=== PATIENT | male | born 1950 | race Caucasian/White ===

== ENCOUNTER 2016-11-23 13:38 | Inpatient (IN) | payer BC, OTHER ==
[~2016-11-23] VITALS: Ht 190.5 cm; Wt 49.9 kg
[2016-11-25 15:59] VITALS: BP 107/71
--- NOTE | 2016-11-25 19:15 | NUR ---
Received report from TOM Acevedo. Received patient laying in bed. Alert and verbally responsive. Able to make needs known. No c/o pain and discomfort at this time. No acute distress. No SOB. Patient on room air. All needs attended to promptly. Call light within reach. Will continue to monitor.
--- NOTE | 2016-11-25 19:30 | NUR ---
Made patient rounds. Patient is a new admission. Checked in on patient and introduced myself. Asked if he needed anything at the moment. Patient verbalized that he wanted and needed a catheter and has been waiting for the past 2 hours. Verbalized to patient that I would check with his orders and the doctor. Patient in no acute distress. No c/o pain and discomfort. No acute distress. All needs attended to promptly. Call light within reach. Will continue to monitor.
--- NOTE | 2016-11-25 20:00 | NUR ---
Called Dr. Martinez and made aware of patient verbalizing that he wanted a catheter. MD made aware of patients past hx. Per Dr. Martinez to ask patient why he wanted catheter. According to patient he has been doing an in and out straight cath at home. Patient also verbalized when I entered room that he wanted to leave AMA. Patient verbalized he was not happy with the care and verbalized that his was coming to get him. Ask pt. if their was anything I could do and he verbalized "No, it's not your fault, I just don't want to be here. I should have looked at my options and looked into it more." Dr. Martinez made aware and verbalized that it is ok for patient to leave AMA. Addendum: 11/25/16 at 2039 by PATTI CLAUDIO RN Annemarie, electrician apprentice powerhouse also made aware of patient wanting to leave AMA.
--- NOTE | 2016-11-25 20:15 | NUR ---
Patient signed form to leave AMA. Made aware of risks and benefits and verbalized understanding. Verbalized is coming to get him. All needs attended to promptly. Call light within reach. Will continue to monitor.
--- NOTE | 2016-11-25 20:30 | NUR ---
Olivia in facility and asked to speak with nurse. asked what had happened and I verbalize to what happened and what patient said. (Please see previous nursing notes). Per Olivia, she will speak to patient. She does not want patient to leave. She said they worked very hard to get him here. Verbalize that patient can get confused and his feelings get in the way of judgment. She also verbalized that patient thought we did not have in and out catheters in facility and that is another reason why he wanted leave. So she brought his in and out catheters from home. Per Olivia, patient will not be leaving AMA. Nursing Scheduler, Annemarie made aware. Dr. Martinez made aware. Per Dr. Martinez to continue all patients medications. TOM Damon made aware. Also with order for In and out Catheterization PRN. Dr. Martinez made aware of reason for patient doing In and out catheterization. 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 Pt. has been doing it at home for years. Pt. is being seen by Urologist Dr. Devon Pacheco. Per Dr. Martinez to let know that one of the aspects of inpatient rehab is bladder training which we will work on. Olivia made aware and agreed. Verbalizes understanding.
[2016-11-25 21:31] VITALS: BP 118/79
[2016-11-25] MEDS ORDERED: DEXTROSE 50% 50 ML DISP.SYRIN IV PRN (22:45)
[2016-11-25] MEDS ORDERED: MINERAL OIL/PETROLATUM,WHITE 57 GM TUBE TOP PRN (22:45)
[2016-11-25] MEDS ORDERED: LEVOFLOXACIN 500 MG TABLET PO SCH (22:45)
--- NOTE | 2016-11-26 05:27 | NUR ---
Patient is alert and oriented and verbally able to let needs known. Slept intermittently through out the night, was moved to room 105 because that bed had an construction electrician for more comfort due to his height. Patient is unable to walk but does use a urinal with a straight cath and uses a bed benavides for BM. Patient does have call light within reach, all needs attended to.
[2016-11-26] MEDS: PANTOPRAZOLE SODIUM 40 MG TABLET.DR PO SCH (07:00)
[2016-11-26] MEDS ORDERED: BLOOD SUGAR DIAGNOSTIC 1 EACH STRIP VI SCH (07:30)
[2016-11-26] MEDS: BLOOD SUGAR DIAGNOSTIC 1 EACH STRIP VI SCH ×4 (07:30→20:50)
[2016-11-26 08:30] VITALS: BP 141/94
[2016-11-26] MEDS: LEVOFLOXACIN 500 MG TABLET PO SCH (09:43)
[2016-11-26] MEDS: INSULIN REGULAR, HUMAN 300 UNIT/3 ML VIAL SQ PRN ×2 (11:37→17:44)
[2016-11-26 12:35] LABS: BASOPHILS # (AUTO) 0.1 K/uL (0.0-8.0); BASOPHILS % (AUTO) 0.9 % (0.0-2.0); EOSINOPHILS # (AUTO) 0.1 K/uL (0.0-0.7); EOSINOPHILS % (AUTO) 0.7 % (0.0-7.0); HEMOGLOBIN 10.8 G/DL (14.0-18.0); LYMPHOCYTES # (AUTO) 0.5 K/uL (20.0-40.0); LYMPHOCYTES % (AUTO) 4.3 % (20.5-51.5); MEAN CORPUSCULAR HEMOGLOBIN 36.4 UUG (27.0-31.0); MEAN CORPUSCULAR HGB CONC 35 g/dL (32.0-37.0); MONOCYTES # (AUTO) 0.4 K/uL (2.0-10.0); MONOCYTES % (AUTO) 3.1 % (0.0-11.0); NEUTROPHILS # (AUTO) 11.6 K/uL (1.8-8.9); PLATELET COUNT (AUTO) 332 K/UL (150-450); RED BLOOD CELL COUNT(AUTO) 2.98 MIL/UL (4.7-6.1); WHITE BLOOD COUNT (AUTO) 12.7 K/UL (4.0-11.2)
[2016-11-26 12:46] LABS: CARBON DIOXIDE 27 mmol/L (21-32); CHLORIDE 105 mmol/L (98-107); CREATININE 0.6 mg/dL (0.6-1.3); GLUCOSE 190 mg/dL (74-106); POTASSIUM 4.4 mmol/L (3.5-5.1); UREA NITROGEN, BLOOD 9 mg/dL (7-18)
[2016-11-26] MEDS ORDERED: ACET325T53 PO (12:46)
[2016-11-26] MEDS ORDERED: BLOO-668 IN (12:48)
[2016-11-26 12:52] LABS: ALANINE AMINOTRANSFERASE 23 U/L (16-63); ALKALINE PHOSPHATASE 258 U/L (50-136); ASPARTATE AMINOTRANSFERASE 42 U/L (15-37); BILIRUBIN,TOTAL 0.4 mg/dL (0.2-1.0); MAGNESIUM 1.6 mg/dL (1.8-2.4); PHOSPHOROUS 2.2 mg/dL (2.5-4.9); TOTAL PROTEIN, SERUM 5.5 g/dL (6.4-8.2)
[2016-11-26] MEDS ORDERED: LEVO500T90 PO (12:52)
[2016-11-26] MEDS ORDERED: DIPH1TAB PO (12:52)
[2016-11-26 12:54] LABS: THYROID STIMULATING HORMONE 6.268 mIU/mL (0.358-3.740)
[2016-11-26] MEDS ORDERED: MINE120C3 TP (12:54)
[2016-11-26] MEDS ORDERED: PANT40TA2 PO (12:55)
[2016-11-26] MEDS ORDERED: RIVA20TA PO (12:56)
[2016-11-26 12:57] LABS: LYMPHOCYTES % (MANUAL) 2 % (20-40); MONOCYTES % (MANUAL) 2 % (2-10); NEUTROPHILS % (MANUAL) 96 % (42-75)
[2016-11-26 14:40] LABS: CHOLESTEROL 97 mg/dL (<200); HDL CHOLESTEROL 23 mg/dL (40-60); TRIGLYCERIDES 91 MG/DL (30-150)
[2016-11-26] MEDS ORDERED: NEUTRA PHOS PACKET PO ONE (15:15)
[2016-11-26] MEDS: RIVAROXABAN 10 MG TABLET PO SCH (17:41)
[2016-11-26 20:52] VITALS: BP 129/84
--- NOTE | 2016-11-27 05:27 | NUR ---
Patient slept well throughout the night, had no episodes of pain or discomfort. Verbally able to let needs known. IV NS still running and patent. Call light within reach. All needs attended to.
[2016-11-27] MEDS: LEVOFLOXACIN 500 MG TABLET PO SCH (06:43)
[2016-11-27] MEDS: PANTOPRAZOLE SODIUM 40 MG TABLET.DR PO SCH (06:43)
[2016-11-27] MEDS: BLOOD SUGAR DIAGNOSTIC 1 EACH STRIP VI SCH ×4 (06:47→21:59)
[2016-11-27 07:49] VITALS: BP 117/74
[2016-11-27 08:10] LABS: CARBON DIOXIDE 27 mmol/L (21-32); CHLORIDE 107 mmol/L (98-107); CREATININE 0.5 mg/dL (0.6-1.3); GLUCOSE 114 mg/dL (74-106); PHOSPHOROUS 1.9 mg/dL (2.5-4.9); POTASSIUM 4.3 mmol/L (3.5-5.1); UREA NITROGEN, BLOOD 8 mg/dL (7-18)
--- NOTE | 2016-11-27 09:22 | NUR ---
DAILY NOTE SISTER HERE TO TAKE HIM FOR A REGULARY SCHEDULED CHEMOTHERAPY APPT WITH ONCOLOGIST MD DIXIE REYNOSO @[id number]. A/O ASSISTED WITH DRSG ALIZA WELL. ALIZA 100% OF BKFST. BM AND URINATION PRIOR TO LEAVING . AM BS 99. IN NO ACUTE DISTRESS. SPOKE WITH TO CONFIRM APPT. PT TAKEN TO CAR IN W/C WHERE HE IS ASSISTED INTO THE VEHICLE. SHE STATES ETA BACK TO THIS HOSPITAL SHOULD BE AROUND 1200.
[2016-11-27] MEDS ORDERED: NEUTRA PHOS PACKET PO ONE (15:30)
[2016-11-27] MEDS: INSULIN REGULAR, HUMAN 300 UNIT/3 ML VIAL SQ PRN ×2 (17:51→21:58)
[2016-11-27] MEDS: RIVAROXABAN 10 MG TABLET PO SCH (18:00)
[2016-11-27 20:00] VITALS: BP 104/68
[2016-11-27] MEDS: MAGNESIUM OXIDE 400 MG TABLET PO SCH (21:56)
[2016-11-28] MEDS: PANTOPRAZOLE SODIUM 40 MG TABLET.DR PO SCH (06:23)
[2016-11-28] MEDS: LEVOTHYROXINE SODIUM 25 MCG TABLET PO SCH (06:23)
[2016-11-28] MEDS: BLOOD SUGAR DIAGNOSTIC 1 EACH STRIP VI SCH ×4 (06:38→20:32)
[2016-11-28] MEDS: IV NS 1000 ML 1,000 ML IV PRN ×2 (07:54→23:47)
[2016-11-28 07:59] LABS: BASOPHILS # (AUTO) 0.1 K/uL (0.0-8.0); BASOPHILS % (AUTO) 0.4 % (0.0-2.0); EOSINOPHILS % (AUTO) 0.3 % (0.0-7.0); HEMATOCRIT 31.7 % (40-50); HEMOGLOBIN 11.1 G/DL (14.0-18.0); LYMPHOCYTES # (AUTO) 0.7 K/uL (20.0-40.0); LYMPHOCYTES % (AUTO) 5.3 % (20.5-51.5); MEAN CORPUSCULAR HEMOGLOBIN 36.7 UUG (27.0-31.0); MEAN CORPUSCULAR HGB CONC 35 g/dL (32.0-37.0); MEAN CORPUSCULAR VOLUME 104.6 FL (82.0-92.0); MONOCYTES # (AUTO) 0.4 K/uL (2.0-10.0); MONOCYTES % (AUTO) 2.9 % (0.0-11.0); NEUTROPHILS # (AUTO) 12.1 K/uL (1.8-8.9); NEUTROPHILS % (AUTO) 91.1 % (38.5-71.5); PLATELET COUNT (AUTO) 370 K/UL (150-450); RED BLOOD CELL COUNT(AUTO) 3.03 MIL/UL (4.7-6.1); WHITE BLOOD COUNT (AUTO) 13.3 K/UL (4.0-11.2)
[2016-11-28 08:00] VITALS: BP 125/81
--- NOTE | 2016-11-28 08:00 | NUR ---
RECEIVED PT THIS AM IN NAD; VSS. PT DENIES PAIN OR DISCOMFORT AT THIS TIME. PT HAS A 20G PERIPHERAL IV ON THE LT FA THAT IS PATENT AND DRESSING IS C/D/I. INFUSING NS AT 80ML/HR. PT HAS A FC THAT IS DRAINING CLEAR ELLEN URINE. PLEASE SEE NURSING FLOWSHEET FOR FURTHER DETAILS
[2016-11-28 08:11] LABS: BILIRUBIN,TOTAL 0.4 mg/dL (0.2-1.0); CREATININE 0.7 mg/dL (0.6-1.3); MAGNESIUM 1.6 mg/dL (1.8-2.4); PHOSPHOROUS 2.3 mg/dL (2.5-4.9); POTASSIUM 4.2 mmol/L (3.5-5.1); TOTAL PROTEIN, SERUM 5.3 g/dL (6.4-8.2)
[2016-11-28] MEDS: DIPHENOXYLATE HCL/ATROP SULF TABLET PO PRN (09:41)
[2016-11-28] MEDS: Z GUARD REMEDY PASTE 57 GM TUBE TOP PRN (09:41)
[2016-11-28 09:56] LABS: LYMPHOCYTES % (MANUAL) 7 % (20-40); MONOCYTES % (MANUAL) 4 % (2-10); NEUTROPHILS % (MANUAL) 89 % (42-75)
[2016-11-28] MEDS: NYSTATIN CREAM 30 GM TUBE TOP SCH ×2 (12:43→20:32)
[2016-11-28] MEDS: INSULIN REGULAR, HUMAN 300 UNIT/3 ML VIAL SQ PRN ×3 (12:45→20:37)
[2016-11-28 14:00] VITALS: BP 94/69
[2016-11-28 14:05] VITALS: BP 98/72
[2016-11-28 14:10] VITALS: BP 78/55
[2016-11-28] MEDS: ACETAMINOPHEN 325 MG TABLET PO PRN (14:20)
--- NOTE | 2016-11-28 14:30 | NUR ---
PT COMPLAINED OF CHEST SORENESS RATED 5/10; NON RADIATING AND NO OTHER ASSOCIATED SYMPTOMS. ACETAMINOPHEN 650MG GIVEN PO
[2016-11-28] MEDS ORDERED: NEUTRA PHOS PACKET PO ONE (14:45)
[2016-11-28] MEDS ORDERED: MAGNESIUM OXIDE 400 MG TABLET PO ONE (14:45)
[2016-11-28 16:00] VITALS: BP 120/75
[2016-11-28] MEDS: RIVAROXABAN 10 MG TABLET PO SCH (17:40)
[2016-11-28] MEDS: MAGNESIUM OXIDE 400 MG TABLET PO SCH (20:31)
[2016-11-28 20:44] VITALS: BP 116/71
[2016-11-29] MEDS: BLOOD SUGAR DIAGNOSTIC 1 EACH STRIP VI SCH ×4 (06:47→21:07)
[2016-11-29] MEDS: LEVOTHYROXINE SODIUM 25 MCG TABLET PO SCH (06:47)
[2016-11-29] MEDS: PANTOPRAZOLE SODIUM 40 MG TABLET.DR PO SCH (06:47)
--- NOTE | 2016-11-29 06:58 | NUR ---
Patient slept well throughout the night, had no complains of pain of discomfort. No SOB or respiratory distress noted. Repositioned Q 2 hrs and as needed. IV patent and running NS at 80ml/hr. Potter catheter patent. Maintained clean and dry throughout the night. Call light within reach, all needs attended.
--- NOTE | 2016-11-29 08:00 | NUR ---
Received patient in bed, awake, alert, coherent, not in any form of acute distress. He denies any pain or discomfort. Assisted to his needs. Call light placed within reach.
[2016-11-29] MEDS: NYSTATIN CREAM 30 GM TUBE TOP SCH ×2 (10:01→21:07)
[2016-11-29] MEDS: INSULIN REGULAR, HUMAN 300 UNIT/3 ML VIAL SQ PRN ×3 (12:29→21:03)
[2016-11-29 13:06] LABS: *VITAMIN D 25-OH VIT D 22 ng/mL (.); *VITAMIN D 25-OH, D2 <1.0 ng/mL (.); *VITAMIN D 25-OH, D3 21 ng/mL (.)
[2016-11-29] MEDS: RIVAROXABAN 10 MG TABLET PO SCH (17:19)
[2016-11-29] MEDS: DIPHENOXYLATE HCL/ATROP SULF TABLET PO PRN (17:49)
[2016-11-29] MEDS: IV NS 1000 ML 1,000 ML IV PRN (18:18)
--- NOTE | 2016-11-29 18:55 | NUR ---
Patient noted with episodes of diarrhea, given PRN lomotil as ordered. No complaint of pain or discomfort. Kept patient clean and dry. Dr. Mclaughlin came to see patient. Followed up with MD regarding NS IV and episode of diarrhea. Per MD may continue currently running IV NS then discontinue once finished. Patient made aware. Call light placed within reach.
--- NOTE | 2016-11-29 19:15 | NUR ---
Received report from Meghan Arcos RN. Received patient in bed. Alert and verbally responsive. Able to make needs known. Patient in no acute distress. No SOB. On Room air. Patient with IV access on lower Left forearm with NS @ 80cc/hr. IV access is patent and intact. No s/s of bleeding noted. No infiltration noted. No swelling or redness noted. Patient with Potter catheter. Patent and intact. Draining clear naren urine. No c/o pain at site. All needs attended to promptly. Call light within reach. Will continue to monitor.
[2016-11-29] MEDS: MAGNESIUM OXIDE 400 MG TABLET PO SCH (20:58)
--- NOTE | 2016-11-30 | NUR ---
Patient asleep at this time. Sleeping comfortably. No acute distress. No SOB. Breathing normally. NS running at 80 ml/hr. IV site patent. Potter catheter patent and draining clear yellow urine. All needs attended to promptly. Call light within reach. Will continue to monitor.
--- NOTE | 2016-11-30 06:00 | NUR ---
Patient still asleep at this time. No s/s of discomfort. No acute distress. No SOB. Patient breathing normally. IV patient and running NS @ 80ml/hr. Potter cather paten and draining clear yellow urine. All needs attended to promptly. Call light within reach. Will continue to monitor.
[2016-11-30] MEDS: PANTOPRAZOLE SODIUM 40 MG TABLET.DR PO SCH (06:26)
[2016-11-30] MEDS: BLOOD SUGAR DIAGNOSTIC 1 EACH STRIP VI SCH ×4 (06:30→21:19)
--- NOTE | 2016-11-30 06:30 | NUR ---
Patient awake and verbally responsive. Slept well throughout the night. No c/o pain and discomfort. No acute distress. 7am medication given. Tolerated well. Accucheck done. BS is 91 this morning. No insulin coverage needed. Pericare provided and mepilex changed on sacrum area. Potter catheter is patent and draining clear yellow urine. IV site is patent and shows no s/s of redness or infiltration at IV site. IVF NS @ 80ml/hr finished and discontinued as ordered by Dr. Mclaughlin. Endorsed to AM shift nurse TOM Garcia. All needs attended to promptly. Call light within reach. Will continue to monitor.
[2016-11-30] MEDS: LEVOTHYROXINE SODIUM 25 MCG TABLET PO SCH (06:35)
--- NOTE | 2016-11-30 08:00 | NUR ---
RECEIVED PATIENT ASLEEP IN BED. CALL LIGHT WITHIN REACH. ENSURED SAFETY. WILL CONTINUE TO MONITOR
[2016-11-30] MEDS: NYSTATIN CREAM 30 GM TUBE TOP SCH ×2 (09:43→21:14)
[2016-11-30] MEDS: INSULIN REGULAR, HUMAN 300 UNIT/3 ML VIAL SQ PRN ×2 (12:41→17:12)
[2016-11-30] MEDS: Z GUARD REMEDY PASTE 57 GM TUBE TOP PRN (14:08)
[2016-11-30] MEDS: DIPHENOXYLATE HCL/ATROP SULF TABLET PO PRN (14:09)
[2016-11-30] MEDS: RIVAROXABAN 10 MG TABLET PO SCH (17:19)
--- NOTE | 2016-11-30 19:25 | NUR ---
Received report from Meghan Caldwell RN. Received patient laying bed. Alert and verbally responsive. Able to make needs known. Denies any pain and discomfort. No acute distress. No SOB. IV site clean and intact. No infiltration needed. Potter catheter patent and intact. Draining clear yellow urine. all needs attended to promptly. Call light within reach. Will continue to monitor.
[2016-11-30] MEDS: MAGNESIUM OXIDE 400 MG TABLET PO SCH (21:13)
--- NOTE | 2016-11-30 22:00 | NUR ---
Patient sleeping comfortably at this time. No acute distress. No discomfort. Breathing normally. Potter catheter is patent and draining clear yellow urine. IV site is clear and intact. All needs attended to promptly. Call light is within reach. Will continue to monitor.
--- NOTE | 2016-12-01 06:00 | NUR ---
Patient awake. Slept well through out the night. No c/o pain and discomfort. No acute distress. 7am medication given. Tolerated well. Accucheck done with Blood sugar of 129. No insulin coverage needed. Potter catheter patent and draining clear yellow urine. IV site is clean and intact. No redness or swelling noted. Patient had BM x1 last night. Kept clean and dry. Rash still noted on groin area. Nystatin cream applied as needed. Mepilex dressing on sacrum changed. Clean and intact. All needs attended to promptly. Call light within reach. Will continue to monitor.
[2016-12-01] MEDS: LEVOTHYROXINE SODIUM 25 MCG TABLET PO SCH (06:12)
[2016-12-01] MEDS: PANTOPRAZOLE SODIUM 40 MG TABLET.DR PO SCH (06:12)
[2016-12-01] MEDS: BLOOD SUGAR DIAGNOSTIC 1 EACH STRIP VI SCH ×4 (06:16→20:56)
--- NOTE | 2016-12-01 07:45 | NUR ---
Report received from shift mechanic. Received patient asleep comfortably in bed. With intact IV line, no swelling or redness noted. With intact robles catheter draining to yellow colored urine. Kept patient warm. Call light within reach. Will continue to monitor.
[2016-12-01 08:00] VITALS: BP 119/77
[2016-12-01] MEDS: NYSTATIN CREAM 30 GM TUBE TOP SCH ×2 (08:41→20:58)
[2016-12-01] MEDS: Z GUARD REMEDY PASTE 57 GM TUBE TOP PRN (12:13)
[2016-12-01] MEDS: INSULIN REGULAR, HUMAN 300 UNIT/3 ML VIAL SQ PRN ×2 (12:28→20:57)
--- NOTE | 2016-12-01 13:16 | NUR ---
WOUND CARE CONSULT: PT PRESENTS WITH RASH TO PERINEUM AND SACRAL/BUTTOCKS AREA WITH SMALL AREA OF OPEN SKIN. RECOMMENDATIONS MADE FOR SKIN PROTECTION. DISCUSSED WITH NURSING STAFF. PT ON FIRST STEP MATTRESS. ALL SKIN PROTECTION MEASURES IN PLACE. MD IN AGREEMENT WITH PLAN OF CARE. Addendum: 12/01/16 at 1317 by MARANDA KOO RN Amended: Links added.
--- NOTE | 2016-12-01 17:08 | NUR ---
All due medications given. Tolerated well. Accu check done, BS of 113 no insulin needed. Patient tolerated therapy well. Had 3x BM, applied Nystatin cream, and Z guard over sacrum wound as ordered. Applied Nystatin cream over perineal area as ordered. With robles catheter intact draining to a dark colored urine. With intact IV access line patent and flushed with NS. No complaints of discomfort or pain at this time. No signs of acute distress. Ensured safety thought the shift.
[2016-12-01] MEDS: RIVAROXABAN 10 MG TABLET PO SCH (17:57)
[2016-12-01] MEDS: MAGNESIUM OXIDE 400 MG TABLET PO SCH (20:57)
[2016-12-01] MEDS: DIPHENOXYLATE HCL/ATROP SULF TABLET PO PRN (20:57)
[2016-12-01 22:27] VITALS: BP 131/84
[2016-12-02] MEDS: PANTOPRAZOLE SODIUM 40 MG TABLET.DR PO SCH (06:29)
[2016-12-02] MEDS: LEVOTHYROXINE SODIUM 25 MCG TABLET PO SCH (06:29)
[2016-12-02] MEDS: BLOOD SUGAR DIAGNOSTIC 1 EACH STRIP VI SCH ×4 (06:41→21:26)
--- NOTE | 2016-12-02 07:15 | NUR ---
Patient received from hourly shift manager, resting comfortably in bed. No signs of acute distress noted, no complaints of pain at this time. Respirations even and unlabored, VS WNL, AAOx3. Potter in place and intact, draining clear yellow urine. HL on left forearm, clean and intact, no redness or swelling at site. Safety precautions maintained, call light within reach.
[2016-12-02 08:05] VITALS: BP 121/72
[2016-12-02] MEDS: NYSTATIN CREAM 30 GM TUBE TOP SCH ×2 (08:44→21:32)
[2016-12-02] MEDS: INSULIN REGULAR, HUMAN 300 UNIT/3 ML VIAL SQ PRN ×3 (12:27→21:31)
[2016-12-02] MEDS: DIPHENOXYLATE HCL/ATROP SULF TABLET PO PRN (14:29)
--- NOTE | 2016-12-02 16:54 | NUR ---
IDT MEETING 12/02/16
[2016-12-02] MEDS: RIVAROXABAN 10 MG TABLET PO SCH (17:21)
[2016-12-02] MEDS ORDERED: GABA-532 PO (17:42)
[2016-12-02] MEDS ORDERED: AMYL1CAP58 PO (17:43)
[2016-12-02] MEDS: MAGNESIUM OXIDE 400 MG TABLET PO SCH (21:26)
[2016-12-02 22:52] VITALS: BP 109/76
--- NOTE | 2016-12-03 05:28 | NUR ---
Patient slept well throughout the night, had no complains of pain or discomfort. Repositioned Q 2 hrs and as needed, maintained clean and dry. Has call light within reach.
[2016-12-03] MEDS: PANTOPRAZOLE SODIUM 40 MG TABLET.DR PO SCH (06:44)
[2016-12-03] MEDS: LEVOTHYROXINE SODIUM 25 MCG TABLET PO SCH (06:44)
[2016-12-03] MEDS: BLOOD SUGAR DIAGNOSTIC 1 EACH STRIP VI SCH ×4 (06:47→21:36)
--- NOTE | 2016-12-03 07:05 | NUR ---
AT BEDSIDE REPORTING PT. SITTING ON BEDPAN. PT. A/0X4. R/A. DENIES PAIN, NAUSEA OR SOB. F/C DRAINING TO GRAVITY WITH YELLOW URINE. PT. STATES HAVING " PAIN FROM THE UTI". PT. PROVIDED PERICARE AND ASSISTED WITH GETTING DRESSED. FAMILY AT AND REQUESTING IMMEDIATE ASSIST WITH GETTING PT. READY FOR DEPATURE TO [facility] FOR CHEMOTHERAPY. 2 PERS ASSIST WITH TRANSFER TO [facility]. PT. LEFT UNIT VIA [facility] ACCOMPANIED BY SISTER AND SPOUSE TO PRIVATE CAR AND STATED THEY HAVE ASSISTANCE AT DESTINATION.
[2016-12-03 07:15] VITALS: BP 121/79
--- NOTE | 2016-12-03 08:00 | NUR ---
PT. OFF UNIT WITH FAMILY/[facility] CHEMOTHERAPY. Addendum: 12/03/16 at 0938 by NAZANIN MARTINEZ RN Amended: Links added. Addendum: 12/03/16 at 1824 by NAZANIN MARTINEZ RN PT. AT DR. CHINCHILLA ONLY. NO CHEMO THERAPY.
[2016-12-03] MEDS: PATIENT MAY USE OWN MED- MD OK PO SCH ×6 (09:00→17:08)
[2016-12-03] MEDS ORDERED: GABAPENTIN 100 MG CAPSULE PO SCH (09:00)
[2016-12-03] MEDS ORDERED: Medication Not On Formulary EA (Amylase/Lipase/Protease (Creon Dr 24,000 Units Capsule) PO SCH (09:00)
--- NOTE | 2016-12-03 12:10 | NUR ---
PT. RETURN FROM DOCTOR'S APPOINTMENT VIA CAR WITH FAMILY. PT. ACCOMPAINED BY PHYSCIAL THERAPIST VIA [facility] FROM CAR TO PT. ROOM. PT. C/O BURNING SENSATION IN URETHRA. MCBRIDE TO GRAVITY APPEARS TO BE LEAKING. PERICARE PROVIDED. CHECK FOR PLACEMENT OF MCBRIDE. DISCUSSED CARE PLAN AND ISSUES RE. PAIN, MCBRIDE CATHETER. PT. SETTLED IN BED. CONTINUE TO MONITOR.
[2016-12-03] MEDS: ACETAMINOPHEN 325 MG TABLET PO PRN ×2 (12:31→13:55)
[2016-12-03] MEDS: DIPHENOXYLATE HCL/ATROP SULF TABLET PO PRN ×3 (12:56→14:24)
[2016-12-03] MEDS: NYSTATIN CREAM 30 GM TUBE TOP SCH ×2 (13:30→21:36)
--- NOTE | 2016-12-03 15:15 | NUR ---
MCBRIDE REMOVED WITHOUT RESISTANCE AND SEDIMENT FOUND AT TIP OF CATHETER. NEW MCBRIDE #16 [place], INSERTED BY TOM MARTIN WITHOUT ANY COMPLICATIONS. 800ML OUTPUT OF ELLEN URINE AND WITH VISIBLE SEDIMENT. PT. STATES PAIN 0/10 NOW. CONTINUE TO MONITOR. TO BE NOTIFED OF FINDINGS.
[2016-12-03 15:30] VITALS: BP 121/79
[2016-12-03] MEDS: RIVAROXABAN 10 MG TABLET PO SCH (17:11)
[2016-12-03] MEDS: INSULIN REGULAR, HUMAN 300 UNIT/3 ML VIAL SQ PRN ×2 (17:13→21:39)
[2016-12-03 21:06] VITALS: BP 111/74
[2016-12-03] MEDS: MAGNESIUM OXIDE 400 MG TABLET PO SCH (21:34)
[2016-12-04] MEDS: BLOOD SUGAR DIAGNOSTIC 1 EACH STRIP VI SCH ×4 (06:33→20:44)
[2016-12-04] MEDS: LEVOTHYROXINE SODIUM 25 MCG TABLET PO SCH (06:33)
[2016-12-04] MEDS: PANTOPRAZOLE SODIUM 40 MG TABLET.DR PO SCH (06:33)
--- NOTE | 2016-12-04 06:46 | NUR ---
Pt slepted fairly well during the night with no problems or complaints noted. Pt verbalized feeling good. Continue to plan of care.
[2016-12-04 07:29] LABS: ALANINE AMINOTRANSFERASE 30 U/L (16-63); ALKALINE PHOSPHATASE 204 U/L (50-136); ASPARTATE AMINOTRANSFERASE 47 U/L (15-37); BILIRUBIN,TOTAL 0.2 mg/dL (0.2-1.0); CARBON DIOXIDE 28 mmol/L (21-32); CHLORIDE 108 mmol/L (98-107); GLUCOSE 109 mg/dL (74-106); MAGNESIUM 1.7 mg/dL (1.8-2.4); TOTAL PROTEIN, SERUM 4.6 g/dL (6.4-8.2); UREA NITROGEN, BLOOD 11 mg/dL (7-18)
[2016-12-04 07:40] LABS: BASOPHILS % (AUTO) 1.3 % (0.0-2.0); EOSINOPHILS % (AUTO) 1.5 % (0.0-7.0); HEMATOCRIT 27.4 % (40-50); HEMOGLOBIN 9.2 G/DL (14.0-18.0); LYMPHOCYTES # (AUTO) 0.9 K/UL (0.8-4.8); LYMPHOCYTES % (AUTO) 27.3 % (20.5-51.5); MEAN CORPUSCULAR HGB CONC 33 g/dL (32.0-37.0); MEAN CORPUSCULAR VOLUME 104.8 FL (82.0-92.0); MONOCYTES # (AUTO) 0.3 K/UL (0.1-1.30); MONOCYTES % (AUTO) 10.9 % (0.0-11.0)
[2016-12-04 07:49] LABS: PLATELET COUNT (AUTO) 226 K/UL (150-450); RED BLOOD CELL COUNT(AUTO) 2.62 MIL/UL (4.7-6.1); WHITE BLOOD COUNT (AUTO) 3.2 K/UL (4.0-11.2)
[2016-12-04 07:54] LABS: CREATININE 0.5 mg/dL (0.6-1.3)
[2016-12-04 08:01] VITALS: BP 113/77
--- NOTE | 2016-12-04 08:02 | NUR ---
Awake, alert, oriented x 4, on moderate high back rest. Breakfast served.
[2016-12-04] MEDS: PATIENT MAY USE OWN MED- MD OK PO SCH ×6 (08:21→17:27)
[2016-12-04] MEDS: NYSTATIN CREAM 30 GM TUBE TOP SCH ×2 (08:23→20:52)
[2016-12-04] MEDS: INSULIN REGULAR, HUMAN 300 UNIT/3 ML VIAL SQ PRN ×2 (13:02→17:30)
--- NOTE | 2016-12-04 13:51 | NUR ---
BRIEF NOTE MET WITH PT REGARDING PT'S CONCERNS FOR MISSING/SUBSTITUTED ITEMS ON FOOD TRAYS. DISCUSSED PT'S PREFERENCES AND DISLIKES AND COMMUNICATED THESE CONCERNS WITH THE DIET OFFICE. NOTED PT IS QUITE THIN WITH S/S OF MALNUTRITION. PT STATED HT OF 75 IN, CURRENT WT IN CHART IS 110 LB, PT STATED NORMAL WT OF 170. OFFERED PT BOOST GLUCOSE CONTROL, PT ACCEPTED. D/W RN (DARRYL) IN REGARDS TO PT'S CONCERNS AND TO ADD BOOST TID WITH MEALS. WILL FOLLOW UP WITH SCHEDULED REASSESSMENT Addendum: 12/04/16 at [address] Amended: Links added.
[2016-12-04] MEDS ORDERED: NEUTRA PHOS PACKET PO ONE ×2 (15:15→16:00)
[2016-12-04] MEDS ORDERED: MAGNESIUM OXIDE 400 MG TABLET PO ONE (16:00)
[2016-12-04] MEDS: RIVAROXABAN 10 MG TABLET PO SCH (17:29)
--- NOTE | 2016-12-04 18:07 | NUR ---
Had 3 large BM to soft stool. Incontinence care done. Kept dry and comfortable. Ate fairly.
--- NOTE | 2016-12-04 19:30 | NUR ---
Report received from Matthew Giang RN. Received patient laying in bed on his cell phone. Alert and verbally responsive. No c/o pain and discomfort. No acute distress. No SOB. IV site is clean and intact. No redness or swelling noted. No c/o pain at Potter catheter site. Patent and draining clear naren urine. No BM at this time. Patient says he is feeling better. All needs attended to promptly. Call light within reach. Will continue to monitor.
[2016-12-04] MEDS: MAGNESIUM OXIDE 400 MG TABLET PO SCH (20:41)
[2016-12-05 05:55] LABS: CARBON DIOXIDE 26 mmol/L (21-32); CHLORIDE 108 mmol/L (98-107); GLUCOSE 143 mg/dL (74-106); PHOSPHOROUS 2.1 mg/dL (2.5-4.9); POTASSIUM 3.9 mmol/L (3.5-5.1); UREA NITROGEN, BLOOD 12 mg/dL (7-18)
[2016-12-05 05:57] LABS: CREATININE 0.5 mg/dL (0.6-1.3)
--- NOTE | 2016-12-05 06:00 | NUR ---
Patient awake. Slept intermittently throughout the night. Alert and verbally responsive. No c/o pain and discomfort. No acute distress. IV site intact. No redness or swelling noted. Potter catheter patent and intact. Draining clear naren urine. No discomfort at catheter site. Patient had BM x3. Pericare provided. Kept clean and dry. All needs attended to promptly. Call light within reach. Will continue to monitor. Addendum: 12/05/16 at 0713 by PATTI CLAUDIO RN Correction, Patient had BM x4.
[2016-12-05] MEDS: LEVOTHYROXINE SODIUM 25 MCG TABLET PO SCH (06:26)
[2016-12-05] MEDS: PANTOPRAZOLE SODIUM 40 MG TABLET.DR PO SCH (06:26)
[2016-12-05] MEDS: BLOOD SUGAR DIAGNOSTIC 1 EACH STRIP VI SCH ×4 (06:32→20:49)
[2016-12-05] MEDS: INSULIN REGULAR, HUMAN 300 UNIT/3 ML VIAL SQ PRN ×4 (06:32→20:48)
--- NOTE | 2016-12-05 07:51 | NUR ---
on bed, sleeping comfortable. no distress noted.
[2016-12-05 08:45] VITALS: BP 121/85
[2016-12-05] MEDS ORDERED: NEUTRA PHOS PACKET PO ONE (08:45)
--- NOTE | 2016-12-05 08:45 | NUR ---
awake, breakfast warmed up per request, served. spoke with dietary with food preferences and served afterwards. glad of food arrangement for now.
[2016-12-05] MEDS: NYSTATIN CREAM 30 GM TUBE TOP SCH ×2 (09:17→20:48)
[2016-12-05] MEDS: PATIENT MAY USE OWN MED- MD OK PO SCH ×6 (09:17→17:21)
--- NOTE | 2016-12-05 09:29 | NUR ---
spoke with family, glad of call. getting ready for shower with OT.
[2016-12-05 11:00] VITALS: BP 106/77
--- NOTE | 2016-12-05 11:00 | NUR ---
back to room with OT, transferred to bed , patient unable to stand on both legs. verbalized feeling dizzy, bp check , 106/77 , hr 81 . denies chest pain or discomfort. head down ,elevated both legs. Patient took some fluids and felt better. Patient playing games on cell phone. Patient likes to cover self with warm blanket for warmth and comfort. Denies difficulty breathing while on warm blanket. request for boost and carried out
--- NOTE | 2016-12-05 11:00 | NUR ---
right forearm dry skin x 2 became an abrasion ,minimal bleeding now dry and cleanse. left open to dry, agreed by patient. denies any discomfort or pain from skin abrasion.
[2016-12-05] MEDS: Z GUARD REMEDY PASTE 57 GM TUBE TOP PRN ×4 (11:04→20:53)
[2016-12-05 12:30] VITALS: BP 126/85
[2016-12-05] MEDS: BOOST GLUCOSE CONTROL 237 ML LIQUID (CHOCOLATE) PO SCH ×2 (13:03→17:34)
[2016-12-05] MEDS: RIVAROXABAN 10 MG TABLET PO SCH (17:21)
--- NOTE | 2016-12-05 19:03 | NUR ---
had x 3 loose bm with good pericare and z guard provided, tolerated well. appetite good.
[2016-12-05 19:30] VITALS: BP 122/81
--- NOTE | 2016-12-05 19:30 | NUR ---
PT ALERT AND ORIENTED. NO DISTRESS NOTED. IV INTACT. MCBRIDE INTACT AND PATENT. NO PAIN NOTED AT THIS TIME. TURNED AND REPOSITIONED. CLEAN AND DRY. SKIN CARE PROVIDED. SAFETY MAINTAINED. CALL LIGHT WITHIN REACH.
[2016-12-05] MEDS: MAGNESIUM OXIDE 400 MG TABLET PO SCH (20:48)
--- NOTE | 2016-12-06 06:21 | NUR ---
PT RESTING IN BED. NO DISTRESS NOTED. IV INTACT AND PATENT. CLEAN AND DRY. TURNED AND REPOSITIONED. SKIN CARE PROVIDED. SAFETY MAINTAINED. CALL LIGHT WITHIN REACH.
[2016-12-06] MEDS: LEVOTHYROXINE SODIUM 25 MCG TABLET PO SCH (06:43)
[2016-12-06] MEDS: PANTOPRAZOLE SODIUM 40 MG TABLET.DR PO SCH (06:43)
[2016-12-06] MEDS: BLOOD SUGAR DIAGNOSTIC 1 EACH STRIP VI SCH ×4 (06:52→20:37)
--- NOTE | 2016-12-06 06:53 | NUR ---
BS 122, NO COVERAGE NEEDED.
--- NOTE | 2016-12-06 07:00 | NUR ---
PT IS SLEEPING IN BED COMFORTABLY. NO S/S OF RESPIRATORY DISTRESS NOTED. NO PAIN REPORTED. ALL SAFETY NEEDS ARE MET, WILL CONTINUE TO MONITOR.
[2016-12-06] MEDS: PATIENT MAY USE OWN MED- MD OK PO SCH ×6 (08:32→17:13)
[2016-12-06] MEDS: BOOST GLUCOSE CONTROL 237 ML LIQUID (CHOCOLATE) PO SCH ×2 (08:32→17:26)
[2016-12-06] MEDS: NYSTATIN CREAM 30 GM TUBE TOP SCH ×2 (08:32→20:34)
[2016-12-06] MEDS: DIPHENOXYLATE HCL/ATROP SULF TABLET PO PRN ×2 (12:11→19:52)
[2016-12-06] MEDS: INSULIN REGULAR, HUMAN 300 UNIT/3 ML VIAL SQ PRN ×3 (12:25→20:41)
[2016-12-06] MEDS: RIVAROXABAN 10 MG TABLET PO SCH (17:29)
[2016-12-06 18:08] VITALS: BP 122/68
--- NOTE | 2016-12-06 19:12 | NUR ---
END OF SHIFT NOTE: PT IS LAYING IN BED, PT REQUESTED BED MORALES, PROVIDED. PT IS NOTED TO HAVE DIARRHEA - YELLOW COLOR/CURDLED/LARGE IN AMOUNT/ WATERY. DR. POP IS AWARE ABOUT THE PT'S CONDITION. NO S/S OF RESPIRATORY DISTRESS NOTED. NO PAIN REPORTED. ALL SAFETY NEEDS ARE MET.
--- NOTE | 2016-12-06 19:30 | NUR ---
RECEIVED PATIENT SITTING IN LARGE AMOUNT OF YELLOW CURDLED DIARRHEA. ENCOURAGED TO INCREASE PO WATER INTAKE. WATER AT BEDSIDE AAT. PM CARE/ WITH GOOD FARRAH CARE GIVEN. MYCOSTATIN TO BOTH GROINS AND Z GUARD TO SACRUM APPLIED. LOMOTIL PO GIVEN. CDIF TOXIN IS REPORTED NEGATIVE YESTERDAY. ON SPECIALTY BED TO PROTECT SKIN. ASSISTED WITH TURNING AND REPOSITIONING. IV SALINE LOCK IS LEAKING AT SITE WHEN BEING FLUSHED WITH NORMAL SALINE. D/C'D INTACT. PERSISTENT ENCOURAGEMNT IN INCREASING FLUID INTAKE TO PREVENT DHN WITH ALL THE DIARRHEA PATIENT IS HAVING. PATIENT VERBALLY AGREES.URINE FROM MCBRIDE IS PROCUREMENT PROFESSIONAL IN COLOR THAN YESTERDAY.
[2016-12-06 20:00] VITALS: BP 115/81
[2016-12-06] MEDS: Z GUARD REMEDY PASTE 57 GM TUBE TOP PRN (20:34)
[2016-12-06] MEDS: MAGNESIUM OXIDE 400 MG TABLET PO SCH (21:40)
[2016-12-07] MEDS: DIPHENOXYLATE HCL/ATROP SULF TABLET PO PRN ×3 (01:45→23:58)
--- NOTE | 2016-12-07 06:00 | NUR ---
HAD A FAIR NIGHT. HAD ONLY 1 LARGE LOOSE BM FOR MY SHIFT SINCE STARTING LOMOTIL. LAST LOMOTIL GIVEN WAS AT 0145. MCBRIDE OUTPUT IMPROVED BUT IS CLOUDY AND WITH SOME SEDIMENT.. NO ODOR THOUGH. AFEBRILE.VITALS STABL. THIS MORNINGS BLOOD SUGAR IS 115.. MCBRIDE CARE AND FARRAH CARE DONE PER PROTACOL. CALL LIGHT WITHIN REACH
[2016-12-07] MEDS: LEVOTHYROXINE SODIUM 25 MCG TABLET PO SCH (06:42)
[2016-12-07] MEDS: PANTOPRAZOLE SODIUM 40 MG TABLET.DR PO SCH (06:43)
[2016-12-07] MEDS: BLOOD SUGAR DIAGNOSTIC 1 EACH STRIP VI SCH ×4 (06:46→20:47)
[2016-12-07 08:23] VITALS: BP 108/71
[2016-12-07] MEDS: PATIENT MAY USE OWN MED- MD OK PO SCH ×6 (08:24→17:09)
[2016-12-07] MEDS: NYSTATIN CREAM 30 GM TUBE TOP SCH (08:25)
[2016-12-07] MEDS: BOOST GLUCOSE CONTROL 237 ML LIQUID (CHOCOLATE) PO SCH ×2 (08:30→17:12)
--- NOTE | 2016-12-07 08:30 | NUR ---
Boost with scanning bar not working kitchen unable to provide one.
--- NOTE | 2016-12-07 15:51 | NUR ---
At this time patient with c/of burning at robles catheter site, and requested for a catheter replacement to be done at this time. When at bedside with tray ready to go patient refused stating " I would rather wait and have it done later on". Patient with robles catheter emptied at noon with a total of 400cc output.
[2016-12-07] MEDS: RIVAROXABAN 10 MG TABLET PO SCH (17:10)
[2016-12-07] MEDS: INSULIN REGULAR, HUMAN 300 UNIT/3 ML VIAL SQ PRN ×2 (17:11→20:57)
--- NOTE | 2016-12-07 19:30 | NUR ---
Received patient awake with no s/s of distress. Call light within reach. No complaints of pain at this time. Will continue to monitor.
[2016-12-07 20:00] VITALS: BP 124/85
[2016-12-07] MEDS: MAGNESIUM OXIDE 400 MG TABLET PO SCH (20:39)
[2016-12-07] MEDS: ACETAMINOPHEN 325 MG TABLET PO PRN (20:51)
--- NOTE | 2016-12-07 21:07 | NUR ---
Requested Tylenol for mild pain in groin area. Will reassess for effectivenes.
[2016-12-08] MEDS: PANTOPRAZOLE SODIUM 40 MG TABLET.DR PO SCH (06:38)
[2016-12-08] MEDS: ACETAMINOPHEN 325 MG TABLET PO PRN (06:38)
[2016-12-08] MEDS: LEVOTHYROXINE SODIUM 25 MCG TABLET PO SCH (06:38)
--- NOTE | 2016-12-08 07:30 | NUR ---
Patient awake with no s/s of distress. Complaints of mild discomfort on groin area, Tylenol given with AM meds. Needs attended. Incontinent care done. Frequent checks done. Due meds given. Requested urine culture this AM because of groin discomfort. Endorsed to [place], RN.
[2016-12-08 08:26] VITALS: BP 112/67
[2016-12-08] MEDS: PATIENT MAY USE OWN MED- MD OK PO SCH ×6 (09:25→16:17)
[2016-12-08] MEDS: BLOOD SUGAR DIAGNOSTIC 1 EACH STRIP VI SCH ×4 (09:28→21:47)
[2016-12-08] MEDS: BOOST GLUCOSE CONTROL 237 ML LIQUID (CHOCOLATE) PO SCH ×2 (09:30→16:20)
[2016-12-08] MEDS: NYSTATIN CREAM 30 GM TUBE TOP SCH ×3 (09:46→22:51)
[2016-12-08] MEDS: INSULIN REGULAR, HUMAN 300 UNIT/3 ML VIAL SQ PRN ×3 (12:17→22:53)
[2016-12-08] MEDS: HYDROCODONE/APAP 5-325MG TABLET PO PRN (16:30)
[2016-12-08] MEDS: RIVAROXABAN 10 MG TABLET PO SCH (16:33)
--- NOTE | 2016-12-08 17:23 | NUR ---
END OF SHIFT NOTES. PT IS A/OX4. V/S STABLE. PT SHOWS NO S/S OF ACUTE DISTRESS. PT STATES, "I HAVE BURNING PAIN WITH THE MCBRIDE CATHETER." MCBRIDE CATHETER READJUSTED. PT CONTINUES TO HAVE BURNING PAIN THROUGHOUT SHIFT. NORCO ADMINISTERED. TO RECEIVED FROM FOR UA AND PYRIDIUM. PT NEEDS ATTENDED. Addendum: 12/08/16 at 1728 by TRACI SIDHU RN MCBRIDE ADJUSTMENT EARLIER AT 1000
--- NOTE | 2016-12-08 19:30 | NUR ---
Received patient awake in bed with no s/s of distress. Call light within reach. Assured of frequent checks during the shift. Will continue to monitor.
[2016-12-08 19:54] LABS: *BILIRUBIN,URIN NEGATIVE (NEGATIVE); *BLOOD, URINE 3+ (NEGATIVE); *CLARITY,URINE SLIGHTLY CLOUDY (CLEAR); *COLOR,URINE YELLOW (YELLOW); *KETONES,URINE TRACE (NEGATIVE); *PROTEIN,URINE 1+ (NEGATIVE); *UROBILINOGEN,URINE 0.2 E.U./dl (NORMAL); LEUKOCYTE ESTERASE ,URINE 3+ (NEGATIVE); NITRITE, URINE NEGATIVE (NEGATIVE); UGLUCOSE NEGATIVE (NEGATIVE)
[2016-12-08 20:00] VITALS: BP 130/81
[2016-12-08 20:02] LABS: BACTERIA,URINE FEW /HPF (NONE SEEN); SQUAMOUS EPITHELIAL CELL,UR FEW /HPF (NONE SEEN); WBC,URINE 80-100 /HPF (0-3)
[2016-12-08 20:03] LABS: CALCIUM OXALATE CRYSTALS,UR RARE /HPF (NONE SEEN); YEAST,URINE MODERATE /HPF (NONE SEEN)
[2016-12-08] MEDS: MAGNESIUM OXIDE 400 MG TABLET PO SCH (21:44)
[2016-12-08] MEDS: PHENAZOPYRIDINE HCL 100 MG TABLET PO SCH (21:44)
[2016-12-09] MEDS: DIPHENOXYLATE HCL/ATROP SULF TABLET PO PRN ×2 (00:08→20:01)
[2016-12-09] MEDS: HYDROCODONE/APAP 5-325MG TABLET PO PRN ×3 (04:06→18:06)
--- NOTE | 2016-12-09 04:19 | NUR ---
[place] 2 tabs given for pain at 7/10 in the groin area as ordered. Will reassess for effectiveness.
[2016-12-09] MEDS: PHENAZOPYRIDINE HCL 100 MG TABLET PO SCH ×3 (06:24→21:13)
[2016-12-09] MEDS: LEVOTHYROXINE SODIUM 25 MCG TABLET PO SCH (06:24)
[2016-12-09] MEDS: PANTOPRAZOLE SODIUM 40 MG TABLET.DR PO SCH (06:24)
--- NOTE | 2016-12-09 07:10 | NUR ---
Patient sleeping with no s/s of distress. Due meds given. Needs attended. Kept clean and comfortable. Call light kept within reach. Frequent checks done. Endorsed accordingly.
--- NOTE | 2016-12-09 07:20 | NUR ---
Received patient from overnight caregiver, patient resting comfortably in bed. No signs of acute distress noted, respirations even and unlabored, O2 sat WNL. VS WNL, no other verbalized needs at this time. Safety precautions maintained, call light within reach.
[2016-12-09 08:11] VITALS: BP 114/77
[2016-12-09] MEDS: PATIENT MAY USE OWN MED- MD OK PO SCH ×6 (08:34→18:06)
[2016-12-09] MEDS: BLOOD SUGAR DIAGNOSTIC 1 EACH STRIP VI SCH ×4 (08:34→20:05)
[2016-12-09] MEDS: BOOST GLUCOSE CONTROL 237 ML LIQUID (CHOCOLATE) PO SCH ×2 (08:36→18:07)
[2016-12-09] MEDS: NYSTATIN CREAM 30 GM TUBE TOP SCH ×2 (08:36→20:01)
[2016-12-09] MEDS: INSULIN REGULAR, HUMAN 300 UNIT/3 ML VIAL SQ PRN ×4 (08:38→20:10)
--- NOTE | 2016-12-09 15:54 | NUR ---
IDT MEETING 12/09/16
[2016-12-09] MEDS: RIVAROXABAN 10 MG TABLET PO SCH (17:45)
--- NOTE | 2016-12-09 18:59 | NUR ---
pt assessed due to reddish urine. Irrigated and showed some infiltrates but continued to flow throughout shift. pt was given norco in morning and night for subrapubic pain 02/01. pt also requested imodium but it was not in EMR. pt given pyridium and caused orange urine. no signs of acute distress. continued to monitor for complications throughout shift.
[2016-12-09] MEDS: MAGNESIUM OXIDE 400 MG TABLET PO SCH (20:01)
[2016-12-09 20:25] VITALS: BP 103/64
[2016-12-10] MEDS: HYDROCODONE/APAP 5-325MG TABLET PO PRN ×3 (00:11→17:20)
--- NOTE | 2016-12-10 05:29 | NUR ---
PT SLEPT INTERMITTENTLY THROUGH THE NIGHT, PT COMPLAINED PAIN/ BURNING OF HIS GROIN AREA, PAIN MEDICATION WAS GIVEN AND WAS EFFECTIVE, PT STILL COMPLAINED OF SLIGHT PAIN WHILE MOVING BUT WAS TOLERABLE. PT DENIED HAVING ANY DIFFICULTY BREATHING. PT MCBRIDE IS INTACT AND PATENT DRAINING ORANGE COLORED URINE.SEDIMENTS NOTED IN URIN BUT PT REFUSED IRRIGATION. 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 ALL NEEDS MET, SAFETY MEASURES ARE IN PLACE, CALL LIGHT WITHIN REACH, BED ALARM IS ON.
[2016-12-10] MEDS: PHENAZOPYRIDINE HCL 100 MG TABLET PO SCH ×3 (06:09→21:07)
[2016-12-10] MEDS: PANTOPRAZOLE SODIUM 40 MG TABLET.DR PO SCH (06:09)
[2016-12-10] MEDS: LEVOTHYROXINE SODIUM 25 MCG TABLET PO SCH (06:12)
[2016-12-10] MEDS: BLOOD SUGAR DIAGNOSTIC 1 EACH STRIP VI SCH ×4 (06:34→20:21)
[2016-12-10 07:40] VITALS: BP 117/72
--- NOTE | 2016-12-10 07:58 | NUR ---
pt. assessed. vital signs taken by MANAGER HEART FAILURE. pt states that he slept well. pain at a tolerable level. pt shows no signs of acute distress. vital signs WNL. pt will be monitored for complications of UTI. will continue to monitor pt further and provide pain medications
[2016-12-10] MEDS: PATIENT MAY USE OWN MED- MD OK PO SCH ×6 (08:44→17:08)
[2016-12-10] MEDS: INSULIN REGULAR, HUMAN 300 UNIT/3 ML VIAL SQ PRN ×3 (08:46→20:26)
[2016-12-10] MEDS: BOOST GLUCOSE CONTROL 237 ML LIQUID (CHOCOLATE) PO SCH ×2 (08:58→17:04)
[2016-12-10] MEDS: NYSTATIN CREAM 30 GM TUBE TOP SCH ×2 (08:58→20:17)
[2016-12-10] MEDS: DIPHENOXYLATE HCL/ATROP SULF TABLET PO PRN ×2 (09:34→17:20)
[2016-12-10 16:00] VITALS: BP 117/72
[2016-12-10] MEDS: RIVAROXABAN 10 MG TABLET PO SCH (17:08)
--- NOTE | 2016-12-10 19:21 | NUR ---
pt had a fall incident with the OT while doing ADL such as brushing teeth. obtained wounds on leg and elbow. pictures taken see on chart. provided wound care. pt adherent to medication regimen. vitals stayed within normal limits. had difficulty performing therapy and was very limited. given pyridium and maintained urine output >30ML PER HOUR. BM x 3. continued to assess pt from complications.
--- NOTE | 2016-12-10 19:30 | NUR ---
RECEIVED PATIENT AWAKE, ALERT AND ORIENTED X 4 IN NAD. NO C/O PAIN AT PRESENT.NO INCONTINENT BM AT THIS TIME. PM CARE DONE MCBRIDE/ FARRAH CARE DONE.MCBRIDE IS DRAINING ADEQUATE U/O BUT IS ORANGE IN COLOR D/T PYRIDIUM, CLOUDY AND WITH SOME SEDIMENT.ENC TO INCREASE INTAKE OF WATER.BILATERAL GROINS CLEANED WELL.NYSTATIN CREAM APPLIED.REDNESS APPEARS LESS SO THAN LAST WEEK.2100 ACCUCHECK ELEVATED AND COVERED WITH INSULIN ORDERED.PM SNACK GIVEN. ENCOURAGED TO SLEEP WELL PATIENT WILL BE TRAVELLING TO [place] IN MORNING FOR HIS CHEMO TREATMENTS.CALL LIGHT WITHIN REACH AATINSTRUCTED PATIENT TO CALL FOR ANY REQUESTS NEEDED. PATIENT VERBALIZES UNDERSTANDING.
[2016-12-10] MEDS: MAGNESIUM OXIDE 400 MG TABLET PO SCH (20:16)
[2016-12-10 21:40] VITALS: BP 103/69
--- NOTE | 2016-12-11 05:20 | NUR ---
patient slept well last night. no c/o pain at urinary meatus or groins.adequate u/o over the night.po water and snacks taken at 100%. had one soft large stool on bedpan. will be going over to [place] today for his chemo treatment about 0815.no c/o at this time. call light within reach
[2016-12-11] MEDS: PANTOPRAZOLE SODIUM 40 MG TABLET.DR PO SCH (06:45)
[2016-12-11] MEDS: PHENAZOPYRIDINE HCL 100 MG TABLET PO SCH ×3 (06:45→21:49)
[2016-12-11] MEDS: LEVOTHYROXINE SODIUM 25 MCG TABLET PO SCH (06:45)
[2016-12-11] MEDS: BLOOD SUGAR DIAGNOSTIC 1 EACH STRIP VI SCH ×4 (06:51→21:50)
[2016-12-11] MEDS: BOOST GLUCOSE CONTROL 237 ML LIQUID (CHOCOLATE) PO SCH ×2 (08:00→18:40)
[2016-12-11] MEDS: PATIENT MAY USE OWN MED- MD OK PO SCH ×6 (08:00→16:48)
--- NOTE | 2016-12-11 09:00 | NUR ---
AM routine medications not administered since patient left for chemotherapy picked up by sister via private car. Patient remained alert, verbally responsive, coherent, afebrile, not in any form of acute distress. He denies any pain or discomfort at this time.
[2016-12-11 09:15] VITALS: BP 119/78
[2016-12-11] MEDS: Z GUARD REMEDY PASTE 57 GM TUBE TOP PRN (12:54)
--- NOTE | 2016-12-11 15:00 | NUR ---
1300 AND 1400 DUE MEDICATIONS NOT ADMINISTERED SINCE PATIENT STILL OUT FOR CHEMOTHERAPY.
--- NOTE | 2016-12-11 15:33 | NUR ---
PATIENT BACK FROM CHEMOTHERAPY. HE RAMAINS ALERT, VERBALLY RESPOSIVE, COHERENT, AFEBRILE, NOT IN ANY FORM OF ACUTE DISTRESS.
[2016-12-11] MEDS: HYDROCODONE/APAP 5-325MG TABLET PO PRN (15:40)
[2016-12-11] MEDS: DIPHENOXYLATE HCL/ATROP SULF TABLET PO PRN ×2 (16:00→21:49)
[2016-12-11] MEDS: INSULIN REGULAR, HUMAN 300 UNIT/3 ML VIAL SQ PRN ×2 (16:47→21:52)
[2016-12-11] MEDS: RIVAROXABAN 10 MG TABLET PO SCH (16:47)
[2016-12-11 20:37] VITALS: BP 114/78
[2016-12-11] MEDS: MAGNESIUM OXIDE 400 MG TABLET PO SCH (21:49)
[2016-12-12] MEDS: PANTOPRAZOLE SODIUM 40 MG TABLET.DR PO SCH (06:52)
[2016-12-12] MEDS: LEVOTHYROXINE SODIUM 25 MCG TABLET PO SCH (06:52)
[2016-12-12] MEDS: DIPHENOXYLATE HCL/ATROP SULF TABLET PO PRN (06:52)
[2016-12-12] MEDS: PHENAZOPYRIDINE HCL 100 MG TABLET PO SCH ×3 (06:52→21:22)
[2016-12-12] MEDS: BLOOD SUGAR DIAGNOSTIC 1 EACH STRIP VI SCH ×4 (07:06→21:28)
--- NOTE | 2016-12-12 07:30 | NUR ---
Pt alert and oriented x 3. Pt denies any c/o pain. Discussed plan of care with pt re: pain management, fall precaution, and promoting pt to be as independent as possible. Pt agreeable with plan of care. F/C draiing orange color secondary to pt taking pyridium. Call light is within reach.
[2016-12-12 08:00] VITALS: BP 113/76
[2016-12-12] MEDS: PATIENT MAY USE OWN MED- MD OK PO SCH ×6 (08:12→16:25)
[2016-12-12] MEDS: INSULIN REGULAR, HUMAN 300 UNIT/3 ML VIAL SQ PRN ×4 (08:13→21:31)
[2016-12-12] MEDS: BOOST GLUCOSE CONTROL 237 ML LIQUID (CHOCOLATE) PO SCH ×2 (08:15→16:27)
[2016-12-12 16:20] VITALS: BP 105/69
[2016-12-12] MEDS: RIVAROXABAN 10 MG TABLET PO SCH (16:26)
--- NOTE | 2016-12-12 18:30 | NUR ---
@1700 Pt c/o burning sensation around his meatus from the f/c. Readjustment of f/c effective. Pt was in continent of bm - encourage pt to call nursing if he knows when he will be having a bm. Pt was only able to do bedside PT - pt c/o feeling "weak" due to having chemo yesterday. Call light is within reach.
--- NOTE | 2016-12-12 19:30 | NUR ---
Received patient awake with no s/s of distress. Denies pain at this time. Call light within reach. Will continue to monitor.
[2016-12-12] MEDS: MAGNESIUM OXIDE 400 MG TABLET PO SCH (21:22)
[2016-12-12 22:30] VITALS: BP 109/67
[2016-12-13] MEDS: DIPHENOXYLATE HCL/ATROP SULF TABLET PO PRN (05:25)
[2016-12-13] MEDS: PHENAZOPYRIDINE HCL 100 MG TABLET PO SCH ×3 (06:10→21:15)
[2016-12-13] MEDS: PANTOPRAZOLE SODIUM 40 MG TABLET.DR PO SCH (06:10)
[2016-12-13] MEDS: LEVOTHYROXINE SODIUM 25 MCG TABLET PO SCH (06:11)
--- NOTE | 2016-12-13 07:34 | NUR ---
Patient sleeping with no s/s of distress. No complaints of pain during the shift. Due meds given. Frequent checks done. Needs attended. Incontinent care done. Kept clean and dry. Endorsed accordingly.
[2016-12-13 08:09] VITALS: BP 116/68
[2016-12-13] MEDS: INSULIN REGULAR, HUMAN 300 UNIT/3 ML VIAL SQ PRN ×4 (08:18→21:14)
[2016-12-13] MEDS: PATIENT MAY USE OWN MED- MD OK PO SCH ×6 (08:18→16:53)
[2016-12-13] MEDS: BLOOD SUGAR DIAGNOSTIC 1 EACH STRIP VI SCH ×4 (08:21→21:15)
[2016-12-13] MEDS: BOOST GLUCOSE CONTROL 237 ML LIQUID (CHOCOLATE) PO SCH ×2 (08:22→16:54)
[2016-12-13] MEDS: HYDROCODONE/APAP 5-325MG TABLET PO PRN (16:45)
[2016-12-13] MEDS: RIVAROXABAN 10 MG TABLET PO SCH (16:51)
--- NOTE | 2016-12-13 17:00 | NUR ---
Pt.c/o of burning and pain in urethral area. F/C checked for placement. No improvement with pain. Reddish urine draining slowly. Pain meds given. Robles removed and tubing noted to have sediment in opening tip of catheter. New robles catheter 16 setswana inserted with some difficulty. Slow draining of urine. Pt. states decrease in pain. Dr. Martinez aware and ordered q shift flush of catheter prn and if not effective place a 14 gauge catheter.
[2016-12-13 20:00] VITALS: BP 118/79
--- NOTE | 2016-12-13 20:00 | NUR ---
RECEIVED PATIENT AWAKE IN BED. PATIENT IS A/O X4. VERY PLEASANT WHEN APPROACHED. NO C/O PAIN AT THIS TIME. NO RESP. DISTRESS NOTED. VSS. F/C NOTED WITH ORANGE COLORED URINE, PATIENT IS ALSO TAKING PYRIDIUM EVERY 8 HOURS. Addendum: 12/14/16 at 0205 by VIK DOAN LVN ALL NEEDS ATTENDED. WILL CONTINUE TO MONITOR. CALL LIGHT IN REACH.
[2016-12-13] MEDS: ACETAMINOPHEN 325 MG TABLET PO PRN (21:14)
[2016-12-13] MEDS: MAGNESIUM OXIDE 400 MG TABLET PO SCH (21:15)
--- NOTE | 2016-12-13 21:15 | NUR ---
PATIENT C/O BURNING DISCOMFORT AROUND CATHETER. PATIENT GIVEN TYLENOL 650MG PO PRN FOR MILD PAIN AND ROUTINE PYRIDIUM GIVEN. WILL CONTINUE TO MONITOR.
--- NOTE | 2016-12-13 22:00 | NUR ---
PATIENT AWAKE IN BED. C/O PAIN AND DISCOMFORT WITH MCBRIDE. HAND IRRIGATED. NO CLOTS NOTED. WILL CONTINUE TO MONITOR AND ASSESS PATIENT.
--- NOTE | 2016-12-13 22:30 | NUR ---
PATIENT STATED THAT THE "PAIN AND BURNING" HAS SUBSIDED. WILL CONTINUE TO MONITOR.
[2016-12-14] MEDS: PANTOPRAZOLE SODIUM 40 MG TABLET.DR PO SCH (06:13)
[2016-12-14] MEDS: PHENAZOPYRIDINE HCL 100 MG TABLET PO SCH ×3 (06:13→21:38)
[2016-12-14] MEDS: LEVOTHYROXINE SODIUM 25 MCG TABLET PO SCH (06:13)
[2016-12-14] MEDS: BLOOD SUGAR DIAGNOSTIC 1 EACH STRIP VI SCH ×4 (06:17→20:23)
--- NOTE | 2016-12-14 06:33 | NUR ---
PATIENT AWAKE IN BED. SLEPT AT INTERVALS THROUGHOUT THE NIGHT. DENIES PAIN OR DISCOMFORT AT THIS TIME. DENIES ANY BURNING OR DISCOMFORT WITH MCBRIDE. CALL LIGHT IN REACH. ALL NEEDS ATTENDED. WILL CONTINUE TO MONITOR .
[2016-12-14] MEDS: PATIENT MAY USE OWN MED- MD OK PO SCH ×6 (07:58→18:27)
[2016-12-14] MEDS: BOOST GLUCOSE CONTROL 237 ML LIQUID (CHOCOLATE) PO SCH ×2 (08:00→17:18)
[2016-12-14] MEDS: INSULIN REGULAR, HUMAN 300 UNIT/3 ML VIAL SQ PRN ×4 (08:00→20:34)
[2016-12-14 08:31] VITALS: BP 117/78
[2016-12-14] MEDS: DIPHENOXYLATE HCL/ATROP SULF TABLET PO PRN (09:57)
[2016-12-14] MEDS: RIVAROXABAN 10 MG TABLET PO SCH (17:20)
[2016-12-14] MEDS: HYDROCODONE/APAP 5-325MG TABLET PO PRN (18:30)
[2016-12-14 20:00] VITALS: BP 126/70
[2016-12-14] MEDS: MAGNESIUM OXIDE 400 MG TABLET PO SCH (20:20)
[2016-12-15] MEDS: HYDROCODONE/APAP 5-325MG TABLET PO PRN ×2 (04:21→23:31)
--- NOTE | 2016-12-15 05:26 | NUR ---
C/O PENILE DISCOMFORT 02/01, WAS GIVEN NORCO 5/25MG 2TABS PRESCRIBED , PT IS NOW SLEEPING, IN NO ACUTE SIGNS OF DISTRESS. HAD LARGE SOFT BM X 1. GOOD PERICARE DONE. BS SUGAR CHECKED LAST NIGHT, RESULT WAS 213 AND WAS GIVEN 4 UNITS PER SLIDING SCALE. SNACKS GIVEN PER PT REQUEST. MCBRIDE INTACT DRAINING RED ORANGE URINE, IRRIGATED ORDERED. TOLERATED WELL. CALL LIGHT WITHIN REACH.
[2016-12-15] MEDS: PHENAZOPYRIDINE HCL 100 MG TABLET PO SCH ×3 (06:42→21:48)
[2016-12-15] MEDS: PANTOPRAZOLE SODIUM 40 MG TABLET.DR PO SCH (06:42)
[2016-12-15] MEDS: LEVOTHYROXINE SODIUM 25 MCG TABLET PO SCH (06:42)
[2016-12-15] MEDS: BLOOD SUGAR DIAGNOSTIC 1 EACH STRIP VI SCH ×4 (06:46→21:48)
--- NOTE | 2016-12-15 08:00 | NUR ---
Received patient asleep. No S/S of distress. Call light within reach. Ensured safety. Will continue to monitor.
[2016-12-15] MEDS: PATIENT MAY USE OWN MED- MD OK PO SCH ×6 (08:01→17:08)
[2016-12-15] MEDS: INSULIN REGULAR, HUMAN 300 UNIT/3 ML VIAL SQ PRN ×4 (08:05→21:53)
[2016-12-15] MEDS: BOOST GLUCOSE CONTROL 237 ML LIQUID (CHOCOLATE) PO SCH ×2 (08:48→17:42)
[2016-12-15 11:04] VITALS: BP 104/62
--- NOTE | 2016-12-15 13:00 | NUR ---
Patient alert and oriented. No complaints of pain. Tolerated lunch and medications well. With discomfort in penile area. Potter catheter flushed accordingly with dark colored returns, no blood clots noted. Attended to needs promptly.
--- NOTE | 2016-12-15 16:06 | NUR ---
Mattress Finisher SW met with patient at [facility] to assess pt needs and provide support. The patient was laying in his bed. He was calm, pleasant, and cooperative during the interview. Per pt, he was admitted due to weakness, lack of strength, and mobility issues. The patient explained that he has gastric bypass surgery about 20 years ago at [facility]. He stated he used to be 350 lbs and that it really helped him recover from his foot ulcer at the time. The patient stated that after he had the surgery, he soon began to have issues with malnourishment and that he lost a lot of muscle mass. He stated that he had become more weak over time and that he went to see his primary care physician, Dr. Holguin in July 2015. He then stated that his MD referred him to [facility] where he had tests done and discovered that he had pancreatic cancer in August 2015. The patient was scheduled to have surgery to remove the cancer, however some time during September, the patient was carrying a bag of cat food into his house and fell down the stairs, breaking his femur. The patient had to reschedule his pancreatic cancer surgery to October 2015. The patient stated that his surgery went well but that since then, he has been very weak. The patient stated that prior to admission, he was walking from his bathroom to his bed and some how lost balance when trying to turn his walker. He stated that he fell directly onto the night stand landing on his chest and then fell to the round on his left hip/femur. He stated he was in excruciating pain and that his took him to the hospital at that point. He stated that he has come to [facility] with the goal of "being independent." He stated that he has been here "for a while now". The patient stated that he has IBS and that he would like to be seen by a urologist/GI MD. The patient also admitted that he does not drink enough water which caused him to be dehydrated/weak. SW reinforced the significance of compliance. The patient stated that PT continues to encourage him to push harder and attempt to walk but the pt admits feeling "reluctant" but not "scared" because of his history of falls. Per pt, his Greg [phone] and his sister are very supportive of him. The patient will be returning home with home health (PT/OT/Aid assistance) upon discharge. SW engaged in active listening and provided supportive counseling during the interview. Addendum: 12/15/16 at 1623 by EDD HOLLAND AMALIA provided the patient with a POLST. Pt stated that he may consider completing the form with his and .
[2016-12-15] MEDS: RIVAROXABAN 10 MG TABLET PO SCH (17:10)
--- NOTE | 2016-12-15 19:30 | NUR ---
RECEIVED PATIENT AWAKE, ALERT, AND ORIENTED. IN NO C/O PAIN AT PRESENT. APPEARS DEPRESSED. ALLOWED TO VERBALIZE. FELT BETTER THEREAFTER.LESS EDEMA IN RIGHT LEG FROM LAST WEEK. ELEVATED ON PILLOWS BILATERALLY.U/O FROM MCBRIDE IS ORANGE FROM PYRIDIUM, CLOUDY AND WITH SEDIMENT. ADEQUATE U/O HOWEVER. CALL LIGHT WITHIN REACH. INSTRUCTED TO CALL FOR ALL NEEDS REQUESTED. VERBALIZES GOOD UNDERSTANDING
[2016-12-15] MEDS: MAGNESIUM OXIDE 400 MG TABLET PO SCH (21:17)
[2016-12-15 22:02] VITALS: BP 115/71
[2016-12-15] MEDS: DIPHENOXYLATE HCL/ATROP SULF TABLET PO PRN (23:30)
[2016-12-16] MEDS ORDERED: ZOLPIDEM 5 MG TABLET PO PRN (00:30)
--- NOTE | 2016-12-16 06:00 | NUR ---
SLEPT WELL AFTER RECEIVING 1 NORCO FOR C/O BURNING AT URINARY MEATUS. NO C/O PAIN THIS MORNING . MCBRIDE WAS IRRIGATED X1 THIS SHIFT TO MAINTAIN PATENCY. MCBRIDE/FARRAH CARE DONE. CALL LIGHT WITHIN REACH. IN NAD AT THIS TIME
[2016-12-16] MEDS: LEVOTHYROXINE SODIUM 25 MCG TABLET PO SCH (06:20)
[2016-12-16] MEDS: PANTOPRAZOLE SODIUM 40 MG TABLET.DR PO SCH (06:20)
[2016-12-16] MEDS: PHENAZOPYRIDINE HCL 100 MG TABLET PO SCH ×3 (06:21→21:40)
[2016-12-16] MEDS: BLOOD SUGAR DIAGNOSTIC 1 EACH STRIP VI SCH ×4 (06:58→21:17)
[2016-12-16] MEDS: INSULIN REGULAR, HUMAN 300 UNIT/3 ML VIAL SQ PRN ×4 (07:59→21:20)
[2016-12-16 08:00] VITALS: BP 115/67
[2016-12-16] MEDS: PATIENT MAY USE OWN MED- MD OK PO SCH ×6 (08:00→17:34)
[2016-12-16] MEDS: BOOST GLUCOSE CONTROL 237 ML LIQUID (CHOCOLATE) PO SCH ×2 (08:00→18:47)
--- NOTE | 2016-12-16 09:34 | NUR ---
Received patient awake resting in bed. Alert and oriented x4. No S/S of distress. Tolerated breakfast well. Insulin coverage received. Attended to needs promptly. Ensured safety.
[2016-12-16] MEDS: HYDROCODONE/APAP 5-325MG TABLET PO PRN (11:17)
[2016-12-16] MEDS: Z GUARD REMEDY PASTE 57 GM TUBE TOP PRN (11:59)
--- NOTE | 2016-12-16 13:37 | NUR ---
IDT MEETING 12/16/16
--- NOTE | 2016-12-16 14:20 | NUR ---
Patient's Potter Catheter flushed. Patient complained of pain. PRN pain medication given. Patient tolerated activity well. Was able to sit up on chair for an hour.
[2016-12-16 16:22] VITALS: BP 113/80
[2016-12-16] MEDS: RIVAROXABAN 10 MG TABLET PO SCH (17:35)
[2016-12-16] MEDS: DIPHENOXYLATE HCL/ATROP SULF TABLET PO PRN (18:47)
--- NOTE | 2016-12-16 20:00 | NUR ---
RECEIVED PT. AWAKE, ALERT & ORIENTED X3. DENIES PAIN THIS TIME. REPOSITIONED ON HIS SIDE W/ HOB ELEVATED.
[2016-12-16 20:04] VITALS: BP 110/70
[2016-12-16] MEDS: MAGNESIUM OXIDE 400 MG TABLET PO SCH (20:45)
--- NOTE | 2016-12-16 21:30 | NUR ---
MCBRIDE CATH CHANGED W/ MCBRIDE CATH FR.#16, INSERTED ASEPTICALLY W/ ORANGY CLEAR URINE. HS CARE DONE, NO BM NOTED.
--- NOTE | 2016-12-17 05:30 | NUR ---
PT. REMAINS ASLEEP. NOT IN ANY DISTRESS.
[2016-12-17] MEDS: PANTOPRAZOLE SODIUM 40 MG TABLET.DR PO SCH (06:20)
[2016-12-17] MEDS: PHENAZOPYRIDINE HCL 100 MG TABLET PO SCH ×3 (06:20→21:28)
[2016-12-17] MEDS: LEVOTHYROXINE SODIUM 25 MCG TABLET PO SCH (06:20)
[2016-12-17] MEDS: BLOOD SUGAR DIAGNOSTIC 1 EACH STRIP VI SCH ×4 (07:16→20:49)
[2016-12-17 08:00] VITALS: BP 115/75
[2016-12-17] MEDS: PATIENT MAY USE OWN MED- MD OK PO SCH ×6 (08:12→17:18)
[2016-12-17] MEDS: INSULIN REGULAR, HUMAN 300 UNIT/3 ML VIAL SQ PRN ×4 (08:17→20:59)
[2016-12-17] MEDS: BOOST GLUCOSE CONTROL 237 ML LIQUID (CHOCOLATE) PO SCH ×2 (08:18→17:00)
[2016-12-17] MEDS: HYDROCODONE/APAP 5-325MG TABLET PO PRN (11:48)
[2016-12-17] MEDS: DIPHENOXYLATE HCL/ATROP SULF TABLET PO PRN (14:30)
[2016-12-17] MEDS: RIVAROXABAN 10 MG TABLET PO SCH (17:23)
[2016-12-17 20:06] VITALS: BP 127/75
[2016-12-17] MEDS: MAGNESIUM OXIDE 400 MG TABLET PO SCH (20:51)
--- NOTE | 2016-12-17 21:00 | NUR ---
NSG: Patient alert and oriented. No complaints of pain. Compliant with HS medications and insulin.HS snack given after insulin given.Potter catheter patent, no blood clots noted. Attended to needs promptly. continue monitoring for safety.
[2016-12-18] MEDS: HYDROCODONE/APAP 5-325MG TABLET PO PRN (04:40)
[2016-12-18] MEDS: PHENAZOPYRIDINE HCL 100 MG TABLET PO SCH ×3 (06:11→21:19)
[2016-12-18] MEDS: LEVOTHYROXINE SODIUM 25 MCG TABLET PO SCH (06:11)
[2016-12-18] MEDS: PANTOPRAZOLE SODIUM 40 MG TABLET.DR PO SCH (06:11)
[2016-12-18 06:46] LABS: EOSINOPHILS # (AUTO) 0.2 K/uL (0.0-0.7); EOSINOPHILS % (AUTO) 0.7 % (0.0-7.0); HEMOGLOBIN 7.4 G/DL (14.0-18.0); LYMPHOCYTES # (AUTO) 1.5 K/UL (0.8-4.8); LYMPHOCYTES % (AUTO) 5.4 % (20.5-51.5); MEAN CORPUSCULAR HEMOGLOBIN 33.4 UUG (27.0-31.0); MEAN CORPUSCULAR HGB CONC 33 g/dL (32.0-37.0); MEAN CORPUSCULAR VOLUME 100.5 FL (82.0-92.0); MONOCYTES # (AUTO) 0.8 K/UL (0.1-1.30); MONOCYTES % (AUTO) 2.7 % (0.0-11.0); NEUTROPHILS # (AUTO) 25.5 K/UL (1.8-8.9); NEUTROPHILS % (AUTO) 91.2 % (38.5-71.5); PLATELET COUNT (AUTO) 308 K/UL (150-450)
[2016-12-18] MEDS: BLOOD SUGAR DIAGNOSTIC 1 EACH STRIP VI SCH ×4 (06:54→21:27)
--- NOTE | 2016-12-18 07:04 | NUR ---
NSG: REMAIN CALM AND COOPERATIVE WITH CARE. PAIN MEDS GIVEN X1 FOR F/C SITE PAIN EFFECTIVE. CONTINUE PLAN OF CARE.
[2016-12-18 07:12] LABS: HEMATOCRIT 22.3 % (40-50); RED BLOOD CELL COUNT(AUTO) 2.22 MIL/UL (4.7-6.1)
--- NOTE | 2016-12-18 07:40 | NUR ---
pt alert and oriented able to verbalized needs. pt breathing regular and unlabored. pt denies distress and discomfort. no complaints of pain at this time. MD notified for a critical lab. Md order xray and UA. order carried out, no new order received
[2016-12-18 08:00] VITALS: BP 118/85
[2016-12-18 08:10] LABS: BAND % (MANUAL) 18 % (0-10); LYMPHOCYTES % (MANUAL) 4 % (20-40); MONOCYTES % (MANUAL) 2 % (2-10); NEUTROPHILS % (MANUAL) 76 % (42-75)
[2016-12-18] MEDS: INSULIN REGULAR, HUMAN 300 UNIT/3 ML VIAL SQ PRN ×4 (08:26→21:29)
[2016-12-18] MEDS: PATIENT MAY USE OWN MED- MD OK PO SCH ×6 (08:27→17:16)
[2016-12-18] MEDS: BOOST GLUCOSE CONTROL 237 ML LIQUID (CHOCOLATE) PO SCH ×2 (08:28→17:16)
[2016-12-18] MEDS: DIPHENOXYLATE HCL/ATROP SULF TABLET PO PRN (08:36)
[2016-12-18 08:41] LABS: BASOPHILS % (AUTO) 0.1 % (0.0-2.0); EOSINOPHILS # (AUTO) 0.2 K/uL (0.0-0.7); EOSINOPHILS % (AUTO) 0.7 % (0.0-7.0); HEMATOCRIT 24.6 % (40-50); LYMPHOCYTES # (AUTO) 1.6 K/UL (0.8-4.8); LYMPHOCYTES % (AUTO) 5.3 % (20.5-51.5); MEAN CORPUSCULAR HEMOGLOBIN 32.3 UUG (27.0-31.0); MEAN CORPUSCULAR HGB CONC 32 g/dL (32.0-37.0); MEAN CORPUSCULAR VOLUME 100.8 FL (82.0-92.0); MONOCYTES # (AUTO) 1.3 K/UL (0.1-1.30); MONOCYTES % (AUTO) 4.2 % (0.0-11.0); NEUTROPHILS # (AUTO) 27.6 K/UL (1.8-8.9); NEUTROPHILS % (AUTO) 89.7 % (38.5-71.5); PLATELET COUNT (AUTO) 326 K/UL (150-450)
[2016-12-18 08:48] LABS: RED BLOOD CELL COUNT(AUTO) 2.44 MIL/UL (4.7-6.1); WHITE BLOOD COUNT (AUTO) 30.7 K/UL (4.0-11.2)
[2016-12-18 08:49] LABS: HEMOGLOBIN 7.9 G/DL (14.0-18.0)
[2016-12-18 10:40] LABS: ALANINE AMINOTRANSFERASE 24 U/L (16-63); ALKALINE PHOSPHATASE 274 U/L (50-136); ASPARTATE AMINOTRANSFERASE 40 U/L (15-37); BILIRUBIN,TOTAL 0.5 mg/dL (0.2-1.0); CARBON DIOXIDE 26 mmol/L (21-32); CHLORIDE 105 mmol/L (98-107); CREATININE 0.6 mg/dL (0.6-1.3); GLUCOSE 170 mg/dL (74-106); MAGNESIUM 1.5 mg/dL (1.8-2.4); PHOSPHOROUS 2.1 mg/dL (2.5-4.9); POTASSIUM 4.4 mmol/L (3.5-5.1); UREA NITROGEN, BLOOD 18 mg/dL (7-18)
[2016-12-18 11:10] LABS: *BLOOD, URINE 3+ (NEGATIVE); *CLARITY,URINE CLOUDY (CLEAR); *COLOR,URINE Orange (YELLOW); *KETONES,URINE 1+ (NEGATIVE); *PROTEIN,URINE 2+ (NEGATIVE); LEUKOCYTE ESTERASE ,URINE 3+ (NEGATIVE); UGLUCOSE TRACE (NEGATIVE)
[2016-12-18 11:46] LABS: NITRITE, URINE POSITIVE (NEGATIVE)
[2016-12-18 11:48] LABS: *BILIRUBIN,URIN 1+ (NEGATIVE)
[2016-12-18 11:50] LABS: WBC,URINE 80-100 /HPF (0-3)
[2016-12-18 11:51] LABS: BACTERIA,URINE FEW /HPF (NONE SEEN); CALCIUM OXALATE CRYSTALS,UR RARE /HPF (NONE SEEN); SQUAMOUS EPITHELIAL CELL,UR FEW /HPF (NONE SEEN)
[2016-12-18 14:17] LABS: BAND % (MANUAL) 11 % (0-10); EOSINOPHILS % (MANUAL) 1 % (0-8); LYMPHOCYTES % (MANUAL) 7 % (20-40); MONOCYTES % (MANUAL) 4 % (2-10); NEUTROPHILS % (MANUAL) 77 % (42-75)
[2016-12-18] MEDS: RIVAROXABAN 10 MG TABLET PO SCH (17:15)
--- NOTE | 2016-12-18 19:20 | NUR ---
nsg: pt received in bed, awake, pale, but denies pain. f/c draining orange urine. on 1st step mattress.
--- NOTE | 2016-12-18 19:30 | NUR ---
nsg: pt a/o x 4, greenlandic speaking only. denies discomfort. bp 174/65, hr 58. will monitor v/s. family at the bedside. Addendum: 12/19/16 at 0520 by KYLE LOPEZ RN wrong patient
--- NOTE | 2016-12-18 20:20 | NUR ---
nsg: bp elevated, sbp 170's. medicated with hydralazine 25mg po prn. cont to monitor. Addendum: 12/19/16 at 0521 by KYLE LOPEZ RN wrong patient
--- NOTE | 2016-12-18 20:20 | NUR ---
nsg: mag level is 1.5, phosphorus 2.1, notified terrie mcnamara np and also DR. Martinez. see orders.
[2016-12-18 20:26] VITALS: BP 120/79
[2016-12-18] MEDS ORDERED: NEUTRA PHOS PACKET PO ONE (20:45)
[2016-12-18] MEDS ORDERED: MAGNESIUM SULFATE 2 GM in IV DEXTROSE 5% 100 ML IV ONE (20:45)
[2016-12-18] MEDS: METRONIDAZOLE 500 MG TABLET PO SCH (21:19)
[2016-12-18] MEDS: MAGNESIUM OXIDE 400 MG TABLET PO SCH (21:19)
[2016-12-18] MEDS: MEROPENEM 0.5 G in IV NORMAL SALINE 50 ML IV SCH (21:20)
--- NOTE | 2016-12-19 05:42 | NUR ---
nsg: pt awake, denies discomfort. no change in condition.
[2016-12-19] MEDS: PANTOPRAZOLE SODIUM 40 MG TABLET.DR PO SCH (06:10)
[2016-12-19] MEDS: PHENAZOPYRIDINE HCL 100 MG TABLET PO SCH ×3 (06:10→21:11)
[2016-12-19] MEDS: METRONIDAZOLE 500 MG TABLET PO SCH ×3 (06:10→21:11)
[2016-12-19] MEDS: LEVOTHYROXINE SODIUM 25 MCG TABLET PO SCH (06:10)
[2016-12-19] MEDS: MEROPENEM 0.5 G in IV NORMAL SALINE 50 ML IV SCH ×3 (06:11→21:11)
[2016-12-19] MEDS: BLOOD SUGAR DIAGNOSTIC 1 EACH STRIP VI SCH ×4 (07:09→21:13)
[2016-12-19 08:00] VITALS: BP 120/84
[2016-12-19] MEDS: PATIENT MAY USE OWN MED- MD OK PO SCH ×6 (08:00→16:05)
[2016-12-19] MEDS: BOOST GLUCOSE CONTROL 237 ML LIQUID (CHOCOLATE) PO SCH ×2 (08:00→16:05)
--- NOTE | 2016-12-19 08:00 | NUR ---
Pt is in no acute distress. Discussed plan of care with patient re: pain mangement, fall precaution, and independence - pt agreeable with plan of care. Call light is within reach.
[2016-12-19] MEDS: INSULIN REGULAR, HUMAN 300 UNIT/3 ML VIAL SQ PRN ×3 (08:02→16:15)
[2016-12-19 09:25] LABS: BASOPHILS # (AUTO) 0.1 K/uL (0.0-8.0); BASOPHILS % (AUTO) 0.2 % (0.0-2.0); EOSINOPHILS # (AUTO) 0.6 K/uL (0.0-0.7); EOSINOPHILS % (AUTO) 1.5 % (0.0-7.0); HEMATOCRIT 25.2 % (40-50); HEMOGLOBIN 8.2 G/DL (14.0-18.0); LYMPHOCYTES # (AUTO) 1.8 K/UL (0.8-4.8); LYMPHOCYTES % (AUTO) 4.8 % (20.5-51.5); MEAN CORPUSCULAR HEMOGLOBIN 32.9 UUG (27.0-31.0); MEAN CORPUSCULAR HGB CONC 33 g/dL (32.0-37.0); MEAN CORPUSCULAR VOLUME 100.8 FL (82.0-92.0); MONOCYTES % (AUTO) 2.6 % (0.0-11.0); NEUTROPHILS % (AUTO) 90.9 % (38.5-71.5); PLATELET COUNT (AUTO) 327 K/UL (150-450)
[2016-12-19 09:32] LABS: CREATININE 0.7 mg/dL (0.6-1.3); MAGNESIUM 1.7 mg/dL (1.8-2.4); POTASSIUM 4.3 mmol/L (3.5-5.1)
[2016-12-19 09:35] LABS: WHITE BLOOD COUNT (AUTO) 38.5 K/UL (4.0-11.2)
[2016-12-19] MEDS: HYDROCODONE/APAP 5-325MG TABLET PO PRN ×2 (11:03→18:27)
[2016-12-19 12:35] LABS: THYROID STIMULATING HORMONE 3.587 mIU/mL (0.358-3.740)
--- NOTE | 2016-12-19 12:52 | NUR ---
Pt is in no acute distress. Critical Lab for lactic acid 2.[address] bermeo and Dr nogueira. No new orders received.
[2016-12-19 13:14] LABS: BAND % (MANUAL) 12 % (0-10); EOSINOPHILS % (MANUAL) 1 % (0-8); LYMPHOCYTES % (MANUAL) 6 % (20-40); MONOCYTES % (MANUAL) 3 % (2-10); MYELOCYTES % 1 % (0-0); NEUTROPHILS % (MANUAL) 77 % (42-75)
--- NOTE | 2016-12-19 13:33 | NUR ---
I called his nurse and found out he was eating food.Keeping him NPO and @3.00pm he is drinking oral contrast and @5.00 pm we will scan him.
[2016-12-19] MEDS ORDERED: BARIUM SULFATE 450 ML ORAL.SUSP ONE (14:06)
[2016-12-19] MEDS ORDERED: IOHEXOL 300MG/ML 100 ML INFUS..BTL ONE (15:41)
[2016-12-19] MEDS ORDERED: IV NORMAL SALINE 250 ML IV ONE (15:41)
[2016-12-19] MEDS: IV NS 1000 ML 1,000 ML IV PRN (16:01)
[2016-12-19] MEDS: DIPHENOXYLATE HCL/ATROP SULF TABLET PO PRN ×2 (16:05→23:27)
[2016-12-19] MEDS: RIVAROXABAN 10 MG TABLET PO SCH (16:05)
[2016-12-19 16:30] VITALS: BP 131/81
--- NOTE | 2016-12-19 17:25 | NUR ---
Received pt back from CT abd and pelvis. Saw pt on prone position. "Pt states that he wants the nursing supervisor pre wave to see him in that position before we reposition him." Called renetta pascual super visor. [phone] nursing supervisor pre wave saw pt and spoke with pt. Repositioned pt for comfort and offered norco for pain management. Notified pt as well that PICC line wont be done until tomorrow spoke with Jodie and nobody available to do a PICC line. Call light is within reach.
[2016-12-19 20:00] VITALS: BP 123/82
--- NOTE | 2016-12-19 20:45 | NUR ---
SPOKE WITH DR MANTILLA CONCERNING CT/OF ABDOMEN/PELVIS RESULTED. NO NEW ORDERS GIVEN, STATED TO FOLLOW UP WITH PRIMARY DR. PLACED CALL AWAITING CALL BACK. WILL CONTINUE TO MONITOR.
--- NOTE | 2016-12-19 21:00 | NUR ---
BS 123, NO COVERAGE GIVEN ORDERED. PAIN DECREASED FROM 7/10 TO 3/10. SAFETY MAINTAINED. WILL CONTINUE TO MONITOR.
[2016-12-19] MEDS: MAGNESIUM OXIDE 400 MG TABLET PO SCH (21:11)
[2016-12-19] MEDS: Z GUARD REMEDY PASTE 57 GM TUBE TOP PRN (21:16)
--- NOTE | 2016-12-19 21:50 | NUR ---
SPOKE WITH METHODS STUDY ANALYST INFORMATION SECURITY ARCHITECT CONCERNING THE CT ABDOMEN/PELVIS RESULTS. METHODS STUDY ANALYST AWARE, AWAITING CALL BACK. WILL CONTINUE TO MONITOR.
[2016-12-19] MEDS ORDERED: FUROSEMIDE 40 MG/4 ML VIAL IV ONE (22:45)
[2016-12-19] MEDS ORDERED: FUROSEMIDE 40 MG/4 ML VIAL ONE (23:20)
--- NOTE | 2016-12-19 23:20 | NUR ---
DUPLICATE DOCUMENTATION OF OVERRIDE MED. LASIX 40 MG IVP GIVEN X 1 ORDERED
--- NOTE | 2016-12-20 02:18 | NUR ---
SPOKE WITH RADHA GARCIA AND ORDERED ZOLOFT AND REPEAT LACTIC ACID. WILL CONTINUE TO MONITOR. Addendum: 12/20/16 at 0226 by YOLANDA WAYNE RN CHEM 7 ORDERED WELL
[2016-12-20 03:06] LABS: BILIRUBIN,TOTAL 0.5 mg/dL (0.2-1.0); CREATININE 0.7 mg/dL (0.6-1.3); POTASSIUM 4.4 mmol/L (3.5-5.1); TOTAL PROTEIN, SERUM 4.8 g/dL (6.4-8.2)
--- NOTE | 2016-12-20 03:45 | NUR ---
SPOKE WITH TOWER ERECTOR, RADHA LACTIC ACID TRENDING DOWN 2.0, AND ALBUMIN TRENDING UP 1.4. ORDERED DIETARY CONSULT ORDERED BY TOWER ERECTOR.
[2016-12-20] MEDS: MEROPENEM 0.5 G in IV NORMAL SALINE 50 ML IV SCH ×3 (05:40→21:17)
[2016-12-20] MEDS: METRONIDAZOLE 500 MG TABLET PO SCH ×3 (05:41→21:16)
[2016-12-20] MEDS: PHENAZOPYRIDINE HCL 100 MG TABLET PO SCH ×3 (05:41→21:16)
[2016-12-20] MEDS: LEVOTHYROXINE SODIUM 25 MCG TABLET PO SCH (06:32)
[2016-12-20] MEDS: PANTOPRAZOLE SODIUM 40 MG TABLET.DR PO SCH (06:32)
[2016-12-20] MEDS: IV NS 1000 ML 1,000 ML IV PRN ×2 (06:36→18:22)
[2016-12-20] MEDS: BLOOD SUGAR DIAGNOSTIC 1 EACH STRIP VI SCH ×4 (06:46→21:31)
--- NOTE | 2016-12-20 07:03 | NUR ---
PT ALERT AND ORIENTED IN BED. NO DISTRESS NOTED. 3L NC O2 SAT WNL. BS 198. IV INTACT AND PATENT. TURNED AND REPOSITIONED. CLEAN AND DRY. SAFETY MAINTAINED. CALL LIGHT WITHIN REACH.
[2016-12-20] MEDS: INSULIN REGULAR, HUMAN 300 UNIT/3 ML VIAL SQ PRN ×4 (07:34→21:35)
[2016-12-20] MEDS: PATIENT MAY USE OWN MED- MD OK PO SCH ×6 (07:35→17:12)
[2016-12-20] MEDS: BOOST GLUCOSE CONTROL 237 ML LIQUID (CHOCOLATE) PO SCH ×2 (07:35→17:16)
[2016-12-20] MEDS: SERTRALINE HCL 100 MG TABLET PO SCH ×2 (07:37→17:12)
[2016-12-20 08:00] VITALS: BP 116/71
--- NOTE | 2016-12-20 08:00 | NUR ---
Pt is in no acute distress. Discussed plan of care re: having pt participate on his care and be more independent, diarrhea management, pain management and proper food - pt agreeable with plan of care. Awaiting PICC line placement today spoke with Bryson Whitfield. Mepilex applied on buttocks. Dressing changed on upper extremities. Applied Z guard and nystatin on groin.
[2016-12-20 08:30] LABS: *IMMUNOGLOBULIN G, SERUM 1264 mg/dL (700-1600); IMMUNOGLOBULIN A, SERUM 670 mg/dL (61-437); IMMUNOGLOBULIN M, SERUM 87 mg/dL (20-172)
[2016-12-20] MEDS: DIPHENOXYLATE HCL/ATROP SULF TABLET PO PRN (14:18)
[2016-12-20] MEDS: HYDROCODONE/APAP 5-325MG TABLET PO PRN (15:59)
[2016-12-20] MEDS: RIVAROXABAN 10 MG TABLET PO SCH (17:14)
--- NOTE | 2016-12-20 18:38 | NUR ---
Plan of care effective. Pt given lomotil for the diarrhea. Pioneer for pain management. Pt is in no acute distress. MIDLINE flushing well. IV kept on left arm per pts request. Call llight is within reach.
--- NOTE | 2016-12-20 19:30 | NUR ---
RECEIVED PATIENT IN NAD AND WITHOUT C/O PAIN. PLAN OF CARE DISCUSSED WITH CONCERNS FOR PAIN MANAGEMENT, DIARRHEAL MANAGEMENT,IVF MONITORING, I/O MONITORING, INFECTION PROCESS, AND COPING MECHANISMS FOR STRESS AND DEPRESSION. PATIENT AGREES WITH PLAN OF CARE.REPOSITIONED AND KEPT OFF OF BACK MUCH POSSIBLE TO PERSERVE SKIN INTEGRITY.MEPILEX ON SACRUM INTACT.REANNA MIDLINE INTACT. GOOD BLOOD RETURN. AND FLUSHES EASILY WITHOUT SIGNS OF INFILTRATION OR PHLEBITIS. BIOPATCH INTACT. SITE IS CLEAR. CALL LIGHT WITHIN REACH. ALL QUESTIONS ANSWERED.IMPROVED MOOD OVER YESTERDAY.VSS. AFEBRILE.
[2016-12-20 20:45] VITALS: BP 144/85
[2016-12-20] MEDS: MAGNESIUM OXIDE 400 MG TABLET PO SCH (21:16)
[2016-12-20] MEDS: LACTOBACILLUS RHAMNOSUS GG 1 EACH CAPSULE PO SCH (21:16)
--- NOTE | 2016-12-20 23:30 | NUR ---
ENCOURAGED TO USE INCENTIVE SPIROMETRY. RETURN DEMONSTRATION DONE 10X AT LEVEL 1500 ML DONE WELL. LUNG SOUNDS ARE CLEAR BUT DIMINISHED IN RIGHT BASE.NON PRODUCTIVE, DRY COUGH. ENC TO DO IS FREQUENTLY W/A.
[2016-12-21] MEDS: IV NS 1000 ML 1,000 ML IV PRN ×2 (04:22→16:37)
--- NOTE | 2016-12-21 05:53 | NUR ---
PATIENT HAD A GOOD NIGHT TONIGHT.NO LOOSE BM'S.AFEBRILE WITH STABLE VITALS.NO C/O PAIN. U/O ADEQUATE FOR THE SHIFT.TOLERATING ATB'S WITHOUT INCIDENT.REANNA MIDLINE SALINE LOCK FLUSHED WITH NORMAL SALINE/ WITH GOOD BLOOD RETURN.DORIS IV PATENT AND WITH GOOD BLOOD RETURN.SLEPT WELL WITHOUT AMBIEN.COMFORTABLE THIS MORNING. CALL LIGHT WITHIN REACH AAT
[2016-12-21] MEDS: LEVOTHYROXINE SODIUM 25 MCG TABLET PO SCH (06:17)
[2016-12-21] MEDS: MEROPENEM 0.5 G in IV NORMAL SALINE 50 ML IV SCH (06:17)
[2016-12-21] MEDS: PHENAZOPYRIDINE HCL 100 MG TABLET PO SCH ×3 (06:17→21:51)
[2016-12-21] MEDS: METRONIDAZOLE 500 MG TABLET PO SCH ×2 (06:17→14:50)
[2016-12-21] MEDS: PANTOPRAZOLE SODIUM 40 MG TABLET.DR PO SCH (06:17)
[2016-12-21] MEDS: BLOOD SUGAR DIAGNOSTIC 1 EACH STRIP VI SCH ×4 (07:05→21:47)
[2016-12-21 07:19] VITALS: BP 113/71
[2016-12-21] MEDS: LACTOBACILLUS RHAMNOSUS GG 1 EACH CAPSULE PO SCH ×2 (08:40→21:50)
[2016-12-21] MEDS: PATIENT MAY USE OWN MED- MD OK PO SCH ×6 (08:40→16:59)
[2016-12-21] MEDS: SERTRALINE HCL 100 MG TABLET PO SCH (08:40)
[2016-12-21] MEDS: BOOST GLUCOSE CONTROL 237 ML LIQUID (CHOCOLATE) PO SCH ×2 (09:18→17:39)
[2016-12-21 11:19] LABS: BASOPHILS # (AUTO) 0.4 K/uL (0.0-8.0); BASOPHILS % (AUTO) 0.9 % (0.0-2.0); EOSINOPHILS # (AUTO) 0.4 K/uL (0.0-0.7); HEMOGLOBIN 8.5 G/DL (14.0-18.0); LYMPHOCYTES # (AUTO) 1.3 K/UL (0.8-4.8); LYMPHOCYTES % (AUTO) 3.3 % (20.5-51.5); MEAN CORPUSCULAR HEMOGLOBIN 35.7 UUG (27.0-31.0); MEAN CORPUSCULAR HGB CONC 34 g/dL (32.0-37.0); MEAN CORPUSCULAR VOLUME 104.9 FL (82.0-92.0); MONOCYTES % (AUTO) 2.6 % (0.0-11.0); NEUTROPHILS # (AUTO) 36.2 K/UL (1.8-8.9); NEUTROPHILS % (AUTO) 92.2 % (38.5-71.5); PLATELET COUNT (AUTO) 357 K/UL (150-450)
[2016-12-21 11:33] LABS: WHITE BLOOD COUNT (AUTO) 39.3 K/UL (4.0-11.2)
[2016-12-21 11:34] LABS: RED BLOOD CELL COUNT(AUTO) 2.39 MIL/UL (4.7-6.1)
[2016-12-21] MEDS: INSULIN REGULAR, HUMAN 300 UNIT/3 ML VIAL SQ PRN ×3 (12:10→21:53)
[2016-12-21] MEDS: DIPHENOXYLATE HCL/ATROP SULF TABLET PO PRN (12:25)
[2016-12-21 13:29] LABS: BAND % (MANUAL) 10 % (0-10); LYMPHOCYTES % (MANUAL) 2 % (20-40); METAMYELOCYTES % 1 % (0-1); MONOCYTES % (MANUAL) 3 % (2-10); MYELOCYTES % 1 % (0-0); NEUTROPHILS % (MANUAL) 83 % (42-75)
--- NOTE | 2016-12-21 14:33 | NUR ---
pt was informed that pt and ot intervention. PT encouraged patient to do exercises. patient refused. PT stated that he tried three times to initiate therapy. pt continued to refuse.
[2016-12-21] MEDS: MICAFUNGIN SODIUM 100 MG in IV NORMAL SALINE 100 ML IV SCH (16:30)
[2016-12-21] MEDS: RIVAROXABAN 10 MG TABLET PO SCH (16:59)
--- NOTE | 2016-12-21 19:18 | NUR ---
pt on 02 satting 95% oxygen. robles patent with output >30ml/hr. notified doctor jean-claude about potassium 5.2. skin intact with mepilex on sacrum area. pt didnt want to go to PT OT exercise. vital signs stable. will continue to monitor for complications
--- NOTE | 2016-12-21 19:30 | NUR ---
Received patient awake with no s/s of acute distress. Respirations even and unlabored. No complaints of pain at this time. IVF infusing well. Call light within reach. Will continue to monitor.
[2016-12-21 20:13] VITALS: BP 127/80
[2016-12-21] MEDS ORDERED: VORICONAZOLE 200 MG TABLET PO SCH (21:00)
[2016-12-21] MEDS: MAGNESIUM OXIDE 400 MG TABLET PO SCH (21:50)
[2016-12-21] MEDS: LINEZOLID 600 MG TABLET PO SCH (21:51)
[2016-12-22] MEDS: PANTOPRAZOLE SODIUM 40 MG TABLET.DR PO SCH (06:38)
[2016-12-22] MEDS: PHENAZOPYRIDINE HCL 100 MG TABLET PO SCH ×3 (06:38→21:02)
[2016-12-22] MEDS: LEVOTHYROXINE SODIUM 25 MCG TABLET PO SCH (06:38)
[2016-12-22] MEDS: PATIENT MAY USE OWN MED- MD OK PO SCH ×6 (08:11→17:54)
[2016-12-22] MEDS: LACTOBACILLUS RHAMNOSUS GG 1 EACH CAPSULE PO SCH ×2 (08:11→21:02)
[2016-12-22] MEDS: LINEZOLID 600 MG TABLET PO SCH ×2 (08:11→21:04)
[2016-12-22] MEDS: BOOST GLUCOSE CONTROL 237 ML LIQUID (CHOCOLATE) PO SCH ×2 (08:14→19:07)
--- NOTE | 2016-12-22 08:18 | NUR ---
Patient awake with no s/s of distress. Skin care done, robles cath care done. Changed robles cath due to clog. Patient verbalized pain relief. Advised to call for help whenever necessary. Encouraged to verbalize needs and concerns. Kept clean and dry throughout the night. Kept clean and comfortable. Snacks offered. VS and blood sugar monitored, WNL. Frequent checks done. Needs attended. Endorsed accordingly.
[2016-12-22] MEDS: BLOOD SUGAR DIAGNOSTIC 1 EACH STRIP VI SCH ×4 (08:41→21:19)
[2016-12-22 11:26] VITALS: BP 181/93
[2016-12-22] MEDS: INSULIN REGULAR, HUMAN 300 UNIT/3 ML VIAL SQ PRN ×3 (12:27→21:06)
[2016-12-22 13:18] LABS: A/G RATIO 0.7 (0.7-1.7); ALBUMIN 2.1 g/dL (2.9-4.4); ALPHA-1-GLOBULIN 0.2 g/dL (0.0-0.4); ALPHA-2-GLOBULIN 0.5 g/dL (0.4-1.0); BETA GLOBULIN 0.9 g/dL (0.7-1.3); GAMMA GLOBULIN 1.5 g/dL (0.4-1.8); GLOBULIN, TOTAL 3.1 g/dL (2.2-3.9); M-SPIKE Not Observed g/dL (Not Observed)
[2016-12-22] MEDS: MICAFUNGIN SODIUM 100 MG in IV NORMAL SALINE 100 ML IV SCH (17:53)
[2016-12-22] MEDS: RIVAROXABAN 10 MG TABLET PO SCH (17:54)
--- NOTE | 2016-12-22 19:00 | NUR ---
Received report from TOM Gu
--- NOTE | 2016-12-22 19:03 | NUR ---
new robles changed for 18 fr to 16 fr. robles flows and patent. pt given mycamine and a new ns 1000ml at 75ml. pt given 02 at 3l. pt vital signs acute distress.
[2016-12-22 20:00] VITALS: BP 135/81
--- NOTE | 2016-12-22 20:00 | NUR ---
Head to toe assessment done. Pt is AOX3 non ambulatory. Lung Sounds WNL,Heart sound S1S2, (+)BS in all quadrants, diabetic, no BM, multiple wounds/scabs noticed upper extremeties.Mildly cool to touch at LE, faint to normal pedal pulses. Presence of pitting edema bilateral leg.Pulses palpable bilateral.Sacral redness, applied mepilex with hydrogel.Pt stated that he was not able to do PT, encouraged to be more active to prevent more complications, verbalized understanding.
[2016-12-22] MEDS: MAGNESIUM OXIDE 400 MG TABLET PO SCH (21:02)
[2016-12-22] MEDS: LOPERAMIDE HCL 2 MG CAPSULE PO PRN (21:02)
[2016-12-23] MEDS: LEVOTHYROXINE SODIUM 25 MCG TABLET PO SCH (06:41)
[2016-12-23] MEDS: BLOOD SUGAR DIAGNOSTIC 1 EACH STRIP VI SCH ×4 (06:41→21:42)
[2016-12-23] MEDS: PHENAZOPYRIDINE HCL 100 MG TABLET PO SCH ×3 (06:41→21:35)
[2016-12-23] MEDS: PANTOPRAZOLE SODIUM 40 MG TABLET.DR PO SCH (06:41)
--- NOTE | 2016-12-23 07:00 | NUR ---
Report to TOM Gu. No distress nor complaints during the shift. Bedbath done, changed linen,cleansed wounds with betadine, pt non allergic to betadine.Covered mepilex left heel, elevated both heels w/ pillows. Took pictures all his wounds and secured in chart.Continue NS at 100mls/hr at RT midline catheter. Left upper ac g 20 discontinued.
[2016-12-23 07:10] LABS: BASOPHILS # (AUTO) 0.1 K/uL (0.0-8.0); BASOPHILS % (AUTO) 0.2 % (0.0-2.0); EOSINOPHILS # (AUTO) 0.4 K/uL (0.0-0.7); EOSINOPHILS % (AUTO) 1.3 % (0.0-7.0); HEMATOCRIT 25.8 % (40-50); HEMOGLOBIN 8.5 G/DL (14.0-18.0); LYMPHOCYTES # (AUTO) 1.2 K/UL (0.8-4.8); LYMPHOCYTES % (AUTO) 4.1 % (20.5-51.5); MEAN CORPUSCULAR HEMOGLOBIN 35.2 UUG (27.0-31.0); MEAN CORPUSCULAR HGB CONC 33 g/dL (32.0-37.0); MEAN CORPUSCULAR VOLUME 107.3 FL (82.0-92.0); MONOCYTES # (AUTO) 0.8 K/UL (0.1-1.30); MONOCYTES % (AUTO) 2.8 % (0.0-11.0); NEUTROPHILS % (AUTO) 91.6 % (38.5-71.5); PLATELET COUNT (AUTO) 367 K/UL (150-450)
[2016-12-23 07:26] LABS: WHITE BLOOD COUNT (AUTO) 29.5 K/UL (4.0-11.2)
[2016-12-23 07:41] LABS: ALANINE AMINOTRANSFERASE 15 U/L (16-63); ALKALINE PHOSPHATASE 237 U/L (50-136); ASPARTATE AMINOTRANSFERASE 35 U/L (15-37); BILIRUBIN,DIRECT 0.2 mg/dL (0.0-0.2); BILIRUBIN,TOTAL 0.5 mg/dL (0.2-1.0); CARBON DIOXIDE 27 mmol/L (21-32); CHLORIDE 107 mmol/L (98-107); CREATININE 0.6 mg/dL (0.6-1.3); GLUCOSE 113 mg/dL (74-106); MAGNESIUM 1.6 mg/dL (1.8-2.4); TOTAL PROTEIN, SERUM 4.8 g/dL (6.4-8.2); UREA NITROGEN, BLOOD 10 mg/dL (7-18)
[2016-12-23 08:00] VITALS: BP 116/77
[2016-12-23] MEDS: BOOST GLUCOSE CONTROL 237 ML LIQUID (CHOCOLATE) PO SCH ×2 (08:00→19:17)
[2016-12-23] MEDS: LACTOBACILLUS RHAMNOSUS GG 1 EACH CAPSULE PO SCH ×2 (08:34→21:34)
[2016-12-23] MEDS: PATIENT MAY USE OWN MED- MD OK PO SCH ×6 (08:34→17:21)
[2016-12-23] MEDS: LINEZOLID 600 MG TABLET PO SCH ×2 (08:36→21:35)
[2016-12-23 10:16] LABS: BAND % (MANUAL) 9 % (0-10); EOSINOPHILS % (MANUAL) 1 % (0-8); LYMPHOCYTES % (MANUAL) 3 % (20-40); MONOCYTES % (MANUAL) 2 % (2-10); NEUTROPHILS % (MANUAL) 85 % (42-75)
--- NOTE | 2016-12-23 12:37 | NUR ---
pt prepared for consult with doctor at [facility]. took his blood for labs. stopped IV ns prior to discharge. no signs of acute distress during preparation and discharge. was picked up by sister. sister states that he will be discharged today but will follow up with house repairer for instructions
[2016-12-23] MEDS ORDERED: MAGNESIUM OXIDE 400 MG TABLET PO ONE (12:45)
--- NOTE | 2016-12-23 13:07 | NUR ---
pt on antibiotics. prior lab results show wbc at 39. todays lab results show 29.5. called mD. MD recommended no orders. notified MD of albumin. 1.3. MD has no orders. no signs of distress with administration or antibiotics.
--- NOTE | 2016-12-23 15:12 | NUR ---
IDT MEETING 12/23/16
[2016-12-23] MEDS: LOPERAMIDE HCL 2 MG CAPSULE PO PRN (15:32)
[2016-12-23] MEDS: HYDROCODONE/APAP 5-325MG TABLET PO PRN (15:33)
[2016-12-23] MEDS: MICAFUNGIN SODIUM 100 MG in IV NORMAL SALINE 100 ML IV SCH (17:22)
[2016-12-23] MEDS: RIVAROXABAN 10 MG TABLET PO SCH (17:22)
[2016-12-23] MEDS: INSULIN REGULAR, HUMAN 300 UNIT/3 ML VIAL SQ PRN ×2 (17:27→21:45)
[2016-12-23] MEDS: IV NS 1000 ML 1,000 ML IV PRN (19:16)
--- NOTE | 2016-12-23 21:18 | NUR ---
pt wbc reduced to 29 during shift. pt had an accident during travel. pt was cleaned up. irrigated robles and 400cc came out. pt reports pain and was given norco. pt vitals stable. blood sugar remained stable throughout shift. pt states that he is not ready for PT OT consult. remained in contact isolation during shift. pt is stable and will be continued to monitor for complications
[2016-12-23 21:22] VITALS: BP 124/80
[2016-12-23] MEDS: MAGNESIUM OXIDE 400 MG TABLET PO SCH (21:34)
--- NOTE | 2016-12-24 00:45 | NUR ---
PATIENT C/O INABILITY TO URINATE THROUGH MCBRIDE. IRRIGATED WITH 30 ML NORMAL SALINE TO RECEIVE LARGE SHREDS OF MUCOUS. THEN UNABLE TO IRRIGATE TO MAINTAIN PATENTCY. PATIENT C/O INCREASING DISCOMFORT AT CATHETER SITE. MCBRIDE CATHETER D/C'D INTACT TO FIND A LARGE SHRED OF MUCOUS AT TIP OF CATHETER. 18 SERBIAN MCBRIDE INSERTED WITH ASCEPTIC TECHNIQUE TO RECEIVE MODERATE ORANGE URINE WITH SHREDS FLOWING THROUGH TUBING. AND AFTERWARDS PATIENT FEELS BETTER.. WILL OBSERVE CLOSELY. NO ABDOMINAL DISTENTION AT THIS TIME NOTED.
--- NOTE | 2016-12-24 06:00 | NUR ---
SLEPT WELL TONIGHT. NO DIARRHEA TONIGHT. U/O ADEQUATE WITH A TOTAL OF 725 ML ORANGE COLORED URINE WITH SEDIMENT AND SHREDS OF MUCOUS.REQUIRED CHANGING THE MCBRIDE TO A ZIMBABWEAN 18 TO DRAIN PROPERLY.AND WITHOUT PAIN OR DISCOMFORT TO PATIENT.NO C/O PAIN THIS MORNING. IN NAD, NO RESPIRATORY DISTRESS ON 3 LPM/NASAL CANNULA. CALL LIGHT WITHIN REACH.
[2016-12-24] MEDS: PANTOPRAZOLE SODIUM 40 MG TABLET.DR PO SCH (06:05)
[2016-12-24] MEDS: IV NS 1000 ML 1,000 ML IV PRN ×2 (06:05→23:14)
[2016-12-24] MEDS: PHENAZOPYRIDINE HCL 100 MG TABLET PO SCH ×3 (06:05→21:33)
[2016-12-24] MEDS: LEVOTHYROXINE SODIUM 25 MCG TABLET PO SCH (06:05)
[2016-12-24] MEDS: BLOOD SUGAR DIAGNOSTIC 1 EACH STRIP VI SCH ×4 (07:02→21:27)
[2016-12-24 08:00] VITALS: BP 116/73
[2016-12-24] MEDS: BOOST GLUCOSE CONTROL 237 ML LIQUID (CHOCOLATE) PO SCH ×2 (08:00→17:28)
[2016-12-24 08:34] LABS: BASOPHILS # (AUTO) 0.1 K/uL (0.0-8.0); BASOPHILS % (AUTO) 0.4 % (0.0-2.0); EOSINOPHILS # (AUTO) 0.4 K/uL (0.0-0.7); EOSINOPHILS % (AUTO) 1.4 % (0.0-7.0); HEMATOCRIT 26.7 % (40-50); HEMOGLOBIN 8.7 G/DL (14.0-18.0); LYMPHOCYTES # (AUTO) 1.1 K/UL (0.8-4.8); LYMPHOCYTES % (AUTO) 4.1 % (20.5-51.5); MEAN CORPUSCULAR HEMOGLOBIN 34.6 UUG (27.0-31.0); MEAN CORPUSCULAR HGB CONC 32 g/dL (32.0-37.0); MEAN CORPUSCULAR VOLUME 106.8 FL (82.0-92.0); MONOCYTES # (AUTO) 0.8 K/UL (0.1-1.30); MONOCYTES % (AUTO) 3.1 % (0.0-11.0); NEUTROPHILS # (AUTO) 24.8 K/UL (1.8-8.9); PLATELET COUNT (AUTO) 392 K/UL (150-450); WHITE BLOOD COUNT (AUTO) 27.2 K/UL (4.0-11.2)
[2016-12-24 08:45] LABS: CREATININE 0.7 mg/dL (0.6-1.3)
[2016-12-24] MEDS: LACTOBACILLUS RHAMNOSUS GG 1 EACH CAPSULE PO SCH ×2 (09:17→21:28)
[2016-12-24] MEDS: PATIENT MAY USE OWN MED- MD OK PO SCH ×6 (09:18→17:24)
[2016-12-24] MEDS: LINEZOLID 600 MG TABLET PO SCH ×2 (09:18→21:29)
[2016-12-24 10:41] LABS: BAND % (MANUAL) 8 % (0-10); EOSINOPHILS % (MANUAL) 2 % (0-8); LYMPHOCYTES % (MANUAL) 8 % (20-40); MONOCYTES % (MANUAL) 4 % (2-10); NEUTROPHILS % (MANUAL) 78 % (42-75)
[2016-12-24] MEDS: INSULIN REGULAR, HUMAN 300 UNIT/3 ML VIAL SQ PRN ×2 (17:06→21:28)
[2016-12-24] MEDS: RIVAROXABAN 10 MG TABLET PO SCH (17:26)
[2016-12-24] MEDS: MICAFUNGIN SODIUM 100 MG in IV NORMAL SALINE 100 ML IV SCH (17:27)
[2016-12-24 20:38] VITALS: BP 125/78
[2016-12-24] MEDS: MAGNESIUM OXIDE 400 MG TABLET PO SCH (21:28)
[2016-12-25] MEDS: PHENAZOPYRIDINE HCL 100 MG TABLET PO SCH ×2 (06:56→14:17)
[2016-12-25] MEDS: LEVOTHYROXINE SODIUM 25 MCG TABLET PO SCH (06:56)
[2016-12-25] MEDS: PANTOPRAZOLE SODIUM 40 MG TABLET.DR PO SCH (06:56)
[2016-12-25] MEDS: BLOOD SUGAR DIAGNOSTIC 1 EACH STRIP VI SCH ×2 (07:02→11:30)
[2016-12-25] MEDS: LACTOBACILLUS RHAMNOSUS GG 1 EACH CAPSULE PO SCH (08:00)
[2016-12-25] MEDS: PATIENT MAY USE OWN MED- MD OK PO SCH ×4 (08:00→14:17)
[2016-12-25] MEDS: BOOST GLUCOSE CONTROL 237 ML LIQUID (CHOCOLATE) PO SCH (08:00)
--- NOTE | 2016-12-25 08:00 | NUR ---
Awake, prepared for out on pass for chemotherapy, changed clothes and placed into wheelchair.
[2016-12-25] MEDS: LINEZOLID 600 MG TABLET PO SCH (08:01)
[2016-12-25] MEDS: INSULIN REGULAR, HUMAN 300 UNIT/3 ML VIAL SQ PRN (08:02)
[2016-12-25 08:05] VITALS: BP 133/78
--- NOTE | 2016-12-25 09:00 | NUR ---
Wanted to have BM, transferred to toilet then back to wheelchair with 3 person assist.
--- NOTE | 2016-12-25 09:30 | NUR ---
Transported via private care with sister to chemotherapy
--- NOTE | 2016-12-25 14:00 | NUR ---
Received back, transferred from car to wheelchair assisted by PT and nursing. Already ate lunch, due medications given
[2016-12-25 15:54] VITALS: BP 139/87
[2016-12-25] MEDS ORDERED: LEVO25TA9 PO (16:30)
[2016-12-25] MEDS ORDERED: LACT1CAP57 PO (16:30)
[2016-12-25] MEDS ORDERED: FLUC200T PO (16:30)
[2016-12-25] MEDS ORDERED: LINE600T PO (16:30)
--- NOTE | 2016-12-25 17:29 | NUR ---
With discharge order to home with home health, with midline to RUE and robles catheter intact. Prescription and DC instruction given to patient, verbalized understanding. Discharged per wheelchair transferred to private car by 2 PT and nursing, with sister in fair condition, not in distress, afebrile.
== END 2016-12-25 17:35 | disposition home health service (06) | DRG 947 ==
PROVIDERS: ADMIT Physical Medicine & Rehabilitation Pain Medicine; ATTEND Physical Medicine & Rehabilitation Pain Medicine
DX: R53.81 Other malaise (principal); E43 Unspecified severe protein-calorie malnutrition; A41.9 Sepsis, unspecified organism; N39.0 Urinary tract infection, site not specified; C25.9 Malignant neoplasm of pancreas, unspecified; B37.49 Other urogenital candidiasis; Z91.81 History of falling; Z79.899 Other long term (current) drug therapy; M25.552 Pain in left hip; M25.562 Pain in left knee; M79.652 Pain in left thigh; R60.0 Localized edema; R53.1 Weakness; R07.89 Other chest pain; Z87.440 Personal history of urinary (tract) infections; Z86.718 Personal history of other venous thrombosis and embolism; Z98.84 Bariatric surgery status; Z85.820 Personal history of malignant melanoma of skin; Z96.641 Presence of right artificial hip joint; Z88.0 Allergy status to penicillin; B96.1 Klebsiella pneumoniae [K. pneumoniae] as the cause of diseases classified elsewhere; E11.65 Type 2 diabetes mellitus with hyperglycemia; D50.9 Iron deficiency anemia, unspecified; R19.5 Other fecal abnormalities; E83.42 Hypomagnesemia; R74.0 Nonspecific elevation of levels of transaminase and lactic acid dehydrogenase [LDH]; Z86.73 Personal history of transient ischemic attack (TIA), and cerebral infarction without residual deficits; G93.0 Cerebral cysts; N40.1 Benign prostatic hyperplasia with lower urinary tract symptoms; R33.8 Other retention of urine; Z79.01 Long term (current) use of anticoagulants; Z90.410 Acquired total absence of pancreas; K86.89 Other specified diseases of pancreas; I11.0 Hypertensive heart disease with heart failure; I50.9 Heart failure, unspecified; E87.8 Other disorders of electrolyte and fluid balance, not elsewhere classified; R19.7 Diarrhea, unspecified; L98.9 Disorder of the skin and subcutaneous tissue, unspecified; B95.2 Enterococcus as the cause of diseases classified elsewhere; Z16.21 Resistance to vancomycin
CPT/HCPCS: 36415; 36569; 70030-TC; 71010; 71270; 74170; 82747; 82784; 83605; 83735; 84100; 84155; 84165; 84443; 85014; 85025; 85730; 86301; 86334; 86625; 87046; 87077; 87086; 93307; 97110; 97112; 97116; 97530; 97535; A4217; A4663; C1758; J1815; J1940; J2185; J2248; J3475; J3490; J7030; J7050; J7060; Q9951; Q9967